=== PATIENT | male | born 1955 | race Caucasian/White ===

== ENCOUNTER 2023-07-19 10:37 | Outpatient (REF) | payer MEDICARE, SELFPAY | END 2023-07-19 10:38 | disposition home or self-care (01) | LOC: HO.HOSX 10:37 | PROVIDERS: Visit Provider Orthopaedic Surgery | DX: Z13.89 Encounter for screening for other disorder (principal) ==

== ENCOUNTER 2024-02-14 12:40 | Outpatient (AMB) | payer MEDICARE, SELFPAY ==
--- NOTE | 2024-02-14 12:41 | A.OFFVIS_ITS ---
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 The patient describes his left knee pain as sharp in nature. His pain has gotten worse over the last few years in spite of continued non operative treatments. The patient states that he has been seen by another provider in the past. He has had cortisone injections which gave him minimal relief. He also had a viscosupplementation injection given into his left knee which gave him good relief. He wishes to hold off on total knee replacement surgery for as long as possible. Has failed the last 3 months of conservative treatment including topical creams, a home exercise program and Tylenol. He is not able to tolerate anti-inflammatory medicines because he is on Eliquis. The patient also has progressively worsening low back pain which radiates down his right leg to his right foot. His back pain has gotten worse over the last year in spite of continued non operative treatments. He also reports intermittent weakness in his right leg. Allergies No Known Allergies Allergy (Verified 02/14/24 12:47) Medication List - Last Reconciled 02/14/24 by Ilan Wood MD apixaban (Eliquis) 5 mg PO BID aspirin (Adult Aspirin Regimen) 81 mg PO DAILY metoprolol tartrate 50 mg PO BID mexiletine 150 mg PO TID ranolazine ER 500 mg PO BID rosuvastatin 40 mg PO DAILY Physical Exam Const Other: Well-nourished well-developed very friendly male awake alert and oriented x3 in no acute distress Back/Spine/Pelvis Other: Low back examination shows right-sided paraspinal muscle tenderness, pain with range of motion, positive straight leg raise test on the right at 70 degrees, 4/5 strength with testing of his right hip flexors and knee extensors when compared to 5/5 strength on his left side Extrem Other: Bilateral lower extremity examination shows good capillary refill, no skin lesions noted, normal sensation light touch Left knee examination shows a mild effusion, palpable crepitus with range of motion, pain with range of motion, range of motion from -3 degrees to 115 degrees, no instability Results Reviewed Results Reviewed: X-rays of the patient's left knee taken previously show joint space narrowing, subchondral sclerosis consistent with osteoarthritis Assessment & Plan Assessment & Plan (1) Left knee pain: Code(s): M25.562 - Pain in left knee Category: Medical (2) Low back pain radiating to right leg: Code(s): M54.50 - Low back pain, unspecified; M79.604 - Pain in right leg Category: Medical (3) Osteoarthritis of left knee: Code(s): M17.12 - Unilateral primary osteoarthritis, left knee Category: Medical Plan Mr. Gaxiola presents with progressively worsening left knee pain due to osteoarthritis. He has not gotten good relief from cortisone injections in the past. He has failed the last 3 months of conservative treatment. Thus, I will see whether or not the patient's insurance company will cover a viscosupplementation injection. He has had viscosupplementation injections in the past which gave him good relief. The patient also has progressively worsening low back pain which radiates down his right leg and associated right leg weakness possibly due to lumbar stenosis or a disc herniation. Thus, I will send him for an MRI of his lumbar spine for further evaluation. I will see him back once the MRI is completed to discuss the findings. Feel free to call me at any time should questions regarding his orthopedic management arise. Thank you very much for asking me to see this very friendly gentleman. I spent 21 minutes in reviewing the patient's records and imaging studies, seeing the patient and documenting in the medical record. Orders: Orders MR lumbar spine wo con 02/14/24 M54.50 - Low back pain, unspecified, M79.604 - Pain in right leg Coding Level of Care Code New Pt Level 3 (63928) Diagnoses Left knee pain M25.562 Low back pain radiating to right leg M54.50; M79.604 Osteoarthritis of left knee M17.12
== END 2024-02-14 13:04 | disposition home or self-care (01) ==
PROVIDERS: Visit Provider Orthopaedic Surgery
DX: M25.562 Pain in left knee (principal); M54.50 Low back pain, unspecified; M79.604 Pain in right leg; M17.12 Unilateral primary osteoarthritis, left knee
CPT/HCPCS: 99203

== ENCOUNTER 2024-02-14 12:40 | Outpatient (REF) | payer MEDICARE, SELFPAY | END 2024-02-14 12:41 | disposition home or self-care (01) | LOC: HO.HOSX 12:40 | PROVIDERS: Visit Provider Orthopaedic Surgery | DX: M17.12 Unilateral primary osteoarthritis, left knee (principal) | CPT/HCPCS: 99202 ==

== ENCOUNTER 2024-03-13 12:54 | Outpatient (AMB) | payer MEDICARE, SELFPAY ==
--- NOTE | 2024-03-13 13:00 | A.OFFVIS_ITS ---
Vital Signs 03/13/24 13:03 Height 5 ft 8 in Weight 195 lb BMI 29.6 Intake Visit Reasons: Left Knee Durolane Injection & MRI Review Intake Note: Joselito is a 68 year old male who presents today to review results of a lumbar spine MRI. The patient states that his back pain is sharp in nature. His pain does radiate down his right leg. He also has progressively worsening left knee pain. He has had cortisone injections in the past which gave him minimal relief. Has not had a viscosupplementation injection. He has tried Tylenol which gives him minimal relief. He is not able to take anti- inflammatory medicines because he is on Eliquis. Allergies No Known Allergies Allergy (Verified 03/13/24 13:03) Physical Exam Vital Signs: BMI result Body Mass Index 29.6 Const Other: Well-nourished well-developed very friendly male awake alert and oriented x3 in no acute distress Extrem Other: Left knee examination shows a mild effusion, palpable crepitus with range of motion, pain with range of motion, no instability Office Procedures Joint Injection/Aspiration Joint Injection/Aspiration Primary Site: left knee Prep: site was prepped using aseptic technique Injected: 60 mg of (Durolane viscosupplementation) and 1% plain lidocaine Procedure: The patient tolerated the procedure well Coding 26301 - Large joint Procedure code (CPT) selection complete Results Reviewed Results Reviewed: X-rays of the patient's left knee taken previously show joint space narrowing, subchondral sclerosis, no acute bony abnormalities MRI of the patient's lumbar spine shows moderate to severe foraminal stenosis at level L5-S1 Assessment & Plan Assessment & Plan (1) Osteoarthritis of left knee: Code(s): M17.12 - Unilateral primary osteoarthritis, left knee Category: Medical Plan Mr. Gaxiola presents with left knee pain due to degenerative joint disease. I had a lengthy discussion with the patient regarding the treatment options. The risks and benefits of a left knee Durolane viscosupplementation injection were discussed at length with the patient. The patient wished to proceed. Prior to the injection I aspirated 5 cc of clear fluid from his left knee. He tolerated the injection well. The patient does have progressively worsening low back pain which radiates down his right leg most likely due to foraminal stenosis. Thus, I will refer the patient to the neurosurgery department here at [facility]. He will follow-up as instructed. He will contact me prior to his follow-up appointment in 3 months should any questions or concerns arise. Feel free to call me at any time should questions regarding his orthopedic management arise. I spent 21 minutes in reviewing the patient's records and imaging studies, seeing the patient and documenting in the medical record. Orders: Orders PT Evaluation and Treatment Today M54.50 - Low back pain, unspecified, M79.604 - Pain in right leg AMB Joint Injection/Aspiration Today M17.12 - Unilateral primary osteoarthritis, left knee Referrals Neuro Spine Referral M54.50 - Low back pain, unspecified, M79.604 - Pain in right leg Coding Level of Care Code Est Pt Level 3 (44884) Complex EM visit Add On G2211 Diagnoses Osteoarthritis of left knee M17.12 CPT Codes Coding - 15492 Large joint: 11926 - Large joint ([id number])
[2024-03-13 13:03] VITALS: BMI 29.6
== END 2024-03-13 13:34 | disposition home or self-care (01) ==
PROVIDERS: Visit Provider Orthopaedic Surgery
DX: M17.12 Unilateral primary osteoarthritis, left knee (principal)
CPT/HCPCS: 20610; 99213

== ENCOUNTER → 2024-03-13 12:54 | Outpatient (BNVA) | payer MEDICARE, SELFPAY | PROVIDERS: Visit Provider Orthopaedic Surgery | DX: M17.12 Unilateral primary osteoarthritis, left knee (principal) | CPT/HCPCS: 20610; 99212; J7318 ==

== ENCOUNTER 2024-03-22 10:37 | Outpatient (AMB) | payer MEDICARE, SELFPAY ==
--- NOTE | 2024-03-22 10:47 | HO.SPINEOV ---
Intake Visit Reasons: LBP Intake Note: Mr. Gaxiola is here today c/o Low back and knee pain. 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 He is a very nice 68-year-old gentleman presents to the office today for evaluation of a right L5 radiculopathy which travels down his leg into his calf and his ankle. He has had this on and off, probably been getting worse over the course of a few months. It has not really restricting his ability to move or do many things but it is there from time to time. He does exercises at home like stretching and things to try to loosen things up. He does not like taking medications so really has not taken any Tylenol or Motrin. No conservative treatments at this point but he did have an MRI showing foraminal narrowing at the L5 foramen. He came in to see us for an evaluation. Does not really report any neck pain or loss of function of the lower extremities from this problem. PMH: History of CAD, AFib on Eliquis but outside of that he tells me he is reasonably healthy with no issues with his lungs, liver, kidneys, intestines, bleeding disorders, cancer etc. Social hx: Quit smoking 2005 when he had his bypass other than that no alcohol or drugs Medications: Maxilla teen, rosuvastatin, Eliquis, ranolazine, metoprolol and a baby aspirin Allergies: None Physical exam: Strength and reflexes intact, gait is normal Imaging review: MRI done at [facility] and [place] shows mild degenerative disc disease in the lumbar spine with some mild disc bulging. The L5-S1 disc is slightly degenerative and this is crowding the L5 foramen. Impression: 68-year-old gentleman presents with what sounds like a right L5 radiculopathy probably secondary to the degeneration of his disc at L5-S1 with some foraminal crowding. In terms of his symptoms, they are really more of an annoyance and not really anything that is affecting his quality of life for his ability to function so I told him that this is something best treated with simple conservative management like PT, possibly a cortisone injection if things escalate. Surgery would be absolutely the last option and I do not think he is close to that at this point. He will come back and see us if things get worse. I did give him a referral to PT. right now he does not want to consider an injection. Thank you for allowing us to care for your patient. The total time spent with this visit with this patient was 45 minutes reviewing history, physical exam, lumbar imaging review, and implementation of treatment plan or further diagnostic testing Stephon Santizo MD,PhD [facility] Orders: Orders PT Evaluation and Treatment Today M51.36 - Other intervertebral disc degeneration, lumbar region Coding Level of Care Code New Pt Level 4 (88165) Diagnoses Lumbar degenerative disc disease M51.36
== END 2024-03-22 11:36 | disposition home or self-care (01) ==
PROVIDERS: Referring Provider Orthopaedic Surgery; Visit Provider Physician Assistant
DX: M51.36 Other intervertebral disc degeneration, lumbar region (principal)
CPT/HCPCS: 99204

== ENCOUNTER → 2024-03-22 10:37 | Outpatient (BNVA) | payer MEDICARE, SELFPAY | PROVIDERS: Visit Provider Physician Assistant | DX: M51.36 Other intervertebral disc degeneration, lumbar region (principal); Z79.01 Long term (current) use of anticoagulants; Z51.81 Encounter for therapeutic drug level monitoring | CPT/HCPCS: 99202 ==

== ENCOUNTER 2024-06-13 14:21 | Outpatient (AMB) | payer MEDICARE, SELFPAY ==
--- OUTSIDE RECORDS SUMMARY | 2024-06-13 14:23 | XMS_ITS ---
Author Name [facility] Organization Unknown History of Medication Use Medication Directions Dispensed Refills Start Date End Date Stat Eliquis 5 MG tablet TAKE 1 TABLET BY MOUTH TWICE A DAY 11/17/2023 active ketoconazole (NIZORAL) 2 % cream Apply to the area twice a day for at least 14 days. 11/02/2023 active sulfamethoxazole-tri methoprim (BACTRIM DS,SEPTRA DS) 800-160 MG per tablet Take 1 tablet by mouth 2 (two) times a day. 11/02/2023 active metoPROLOL TARTRATE (LOPRESSOR) 50 MG tablet Take 1 tablet (50 mg total) by mouth 2 (two) times a day. 06/10/2022 active calcium carbonate (TUMS) 500 MG chewable tablet Chew 1 tablet (500 mg total) every 4 (four) hours as needed for indigestion or heartburn. 06/14/2022 active rosuvastatin (CRESTOR) 20 MG tablet Take 1 tablet (20 mg total) by mouth daily. 06/10/2022 aborted Esomeprazole Magnesium (NEXIUM PO) Take by mouth. 11/23/2022 aborted gadobutrol (GADAVIST) injection 19 mL 19 mL, Intravenous, Once in imaging, contrast, Starting on Mon05/02/23 at 1532, For 1 dose, Radiology Appointment 05/05/2023 completed mexiletine (MEXITIL) 150 MG capsule Take 1 capsule (150 mg total) by mouth 3 (three) times a day. With food. 10/27/2022 active apixaban (ELIQUIS) 5 MG tablet Take 1 tablet (5 mg total) by mouth 2 (two) times a day. 06/10/2022 active raNOLazine (raNEXa) 500 MG 12 hr tablet Take 1 tablet (500 mg total) by mouth twice daily (every 12 hours). Swallow tablet whole; do not crush, break, or chew. 06/10/2022 active metoPROLOL TARTRATE (LOPRESSOR) 25 MG tablet Take 1 tablet (25 mg total) by mouth 2 (two) times a day. 08/26/2022 active nitroglycerin (NITROSTAT) 0.[address] 1 tablet (0.4 mg total) under the tongue every 5 (five) minutes as needed for chest pain. 06/10/2022 active esomeprazole (NexIUM) 10 MG packet Take 10 mg by mouth as needed. 06/10/2022 active doxycycline (VIBRAMYCIN) 100 MG capsule Take 1 capsule (100 mg total) by mouth 2 (two) times a day. 06/10/2022 aborted rosuvastatin (CRESTOR) 40 MG tablet Take 1 tablet (40 mg total) by mouth daily. 11/20/2022 active tamsulosin (FLOMAX) 0.4 MG capsule 05/08/2023 aborted diazepam (VALIUM) 5 MG tablet Take 1 tablet the night before your MRI and 1 tablet one hour before your MRI. Please coordinate a ride. 12/16/2022 aborted aspirin enteric coated (ECOTRIN LOW STRENGTH) 81 MG EC tablet Take 1 tablet (81 mg total) by mouth daily. 06/10/2022 active rosuvastatin (CRESTOR) 20 MG tablet TAKE 1 TABLET BY MOUTH EVERY DAY 08/03/2022 aborted esomeprazole (NexIUM) 40 MG capsule as needed. 05/12/2023 active Problems Problem Status Onset Date Problem Type Date of Resolution Source Onychomycosis due to dermatophyte active 2024-05-20 [facility]Act [facility] Mitral valve insufficiency active 2022-02-23 ProblemAct [facility] High cholesterol active EncounterDiagnosisAct [facility] Interatrial septal aneurysm with PFO active 2021-12-08 ProblemAct [facility] Abdominal pain active 2009-10-[address] PAF (paroxysmal atrial fibrillation) active 2022-02-23 ProblemAct [facility] Osteoarthritis active 2009-05-[address] GERD (gastroesophageal reflux disease) active 2020-12-07 ProblemAct [facility] Type 2 diabetes mellitus without complication active 2024-05-20 ProblemAct [facility] S/P CABG x 2 active 2016-09-22 ProblemAct [facility] External hemorrhoids active 2008-08-25 ProblemAct [facility] Anxiety state active 2009-10-16 ProblemAct [facility] T Disorder of carbohydrate metabolism active 2024-05-20 ProblemAct [facility] Impacted cerumen active 2009-07-16 ProblemAct [facility] Coronary artery disease involving coronary bypass graft of [place] heart without angina pectoris active 2022-02-23 ProblemAct [facility] Atypical atrial flutter active 2021-03-31 ProblemAct [facility] Verruca vulgaris active 2024-05-20 ProblemAct [facility] Arthritis of knee active 2024-05-20 ProblemAct [facility] S/P right coronary artery (RCA) stent placement active ProblemAct [facility] Benign neoplasm of colon active 2008-10-24 ProblemAct [facility] Benign neoplasm of skin active 2024-05-20 ProblemAct [facility] Abnormal glucose level active 2024-05-20 ProblemAct [facility] Femoral artery hematoma complicating cardiac catheterization active 2020-12-07 ProblemAct [facility] Ischemic cardiomyopathy active 2022-02-23 ProblemAct [facility] Pericardial cyst active 2023-11-08 ProblemAct [facility] Epidermoid cyst of skin active 2024-05-20 ProblemAct [facility] Hemorrhage of rectum and anus active 2008-08-25 ProblemAct [facility] Non compliance with medical treatment active 2019-04-22 ProblemAct [facility] Derangement of knee active 2009-07-16 ProblemAct [facility] Dizziness and giddiness active 2024-05-20 ProblemAct [facility] NSVT (nonsustained ventricular tachycardia) active 2022-12-22 ProblemAct [facility] Acute upper respiratory infection active 2024-05-20 ProblemAct [facility] Ingrown nail active 2008-04-22 ProblemAct [facility] Immunizations Vaccine Date Source Lot Number Status Covid-19 MRNA Vaccine - Pfiz er 12+ (Purple Cap) 08/30/2020 [facility] completed Influenza, Trivalent (FLUARI X, AFLURIA, FLULAVAL, FLUZONE) Preservative Free IM 05/29/2012 [facility] [id number] completed Zoster Vaccine Recombinant (Shingrix) 10/05/2022 [facility] [id number] completed Influenza, Trivalent (FLUARI X, AFLURIA, FLULAVAL, FLUZONE) Preservative Free IM 05/07/2013 [facility] [id number] completed Influenza, Quadrivalent (FLU ARIX, AFLURIA, FLULAVAL, FLUZONE) Preservative Free IM 05/20/2020 [facility] [id number] completed Influenza, Unspecified 06/13/2023 [facility] co mpleted Influenza, Trivalent (FLUARI X, AFLURIA, FLULAVAL, FLUZONE) Preservative Free IM 05/16/2011 [facility] [id number] completed Influenza High-Dose Quadriva lent,(FLUZONE HIGH-DOSE), Perservative Free IM 0.7 mL 65 years and older 06/01/2022 [facility] [id number] completed Zoster Vaccine Recombinant (Shingrix) 04/27/2022 [facility] [id number] completed Influenza, Quadrivalent (FLU ARIX, AFLURIA, FLULAVAL, FLUZONE) Preservative Free IM 04/22/2019 [facility] [id number] completed Covid-19 MRNA Vaccine - Pfiz er 12+ (Purple Cap) 08/05/2000 [facility] completed Influenza Virus Trivalent Sp lit Vaccine (MDV) IM 04/22/2008 [facility] completed Covid-19 MRNA Vaccine - Pfiz er 12+ (Purple Cap) 07/30/2020 [facility] completed Influenza, Quadrivalent (FLU ARIX, AFLURIA, FLULAVAL, FLUZONE) Preservative Free IM 04/13/2017 [facility] [id number] completed Tdap 02/12/2013 [facility] completed Covid-19 MRNA Vaccine - Pfiz er 12+ (Purple Cap) 07/09/2020 [facility] completed Influenza, Quadrivalent (FLU ARIX, AFLURIA, FLULAVAL, FLUZONE) Preservative Free IM 04/28/2016 [facility] [id number] completed Zoster,unspecified 10/05/2022 [facility] [id number] comple lee ann Influenza (AFLURIA/FLUZONE) Inactivated/Split Quadrivalent with Preservative IM 04/22/2008 [facility] completed H1N1 All Forms 06/04/2009 [facility] completed Influenza, Recombinant, Quad rivalent (FLUBLOK) Preservative Free IM 05/11/2018 [facility] [id number] completed Influenza (AFLURIA/FLUZONE) Inactivated/Split Quadrivalent with Preservative IM 04/10/2014 [facility] [id number] completed
[2024-06-13 14:31] VITALS: BMI 29.6
--- NOTE | 2024-06-13 14:31 | A.OFFVIS_ITS ---
Vital Signs 06/13/24 14:31 Height 5 ft 8 in Weight 195 lb BMI 29.6 Intake Visit Reasons: Left knee pain Intake Note: Joselito is a 68 year old male who presents with complaints of progressively worsening left knee pain. He describes his pain as sharp in nature. He has had cortisone injections in the past which gave him no relief. Has also had Durolane viscosupplementation injections which gave him good relief. He has tried Tylenol which gives him minimal relief. He is not able to take anti- inflammatory medicines because he is on Eliquis. He has failed the last 3 months of conservative treatment which has consisted of physical therapy exercises, Tylenol and topical creams. The patient states that his left knee pain is now interfering with his activities of daily living and his ability to sleep well through the night. He wishes to hold off on total knee replacement surgery for as long as possible. Allergies No Known Allergies Allergy (Verified 06/13/24 14:44) Medication List - Last Reconciled 06/14/24 by Ilan Wood MD apixaban (Eliquis) 5 mg PO BID aspirin (Adult Aspirin Regimen) 81 mg PO DAILY metoprolol tartrate 50 mg PO BID mexiletine 150 mg PO TID ranolazine ER 500 mg PO BID rosuvastatin 40 mg PO DAILY Physical Exam Vital Signs: BMI result Body Mass Index 29.6 Const Other: Well-nourished well-developed very friendly male awake alert and oriented x3 in no acute distress Extrem Other: Bilateral lower extremity examination shows good capillary refill, no skin lesions noted, normal sensation light touch Left knee examination shows a minimal effusion, palpable crepitus with range of motion, pain with range of motion, range of motion from -3 degrees to 115 degrees, no instability Results Reviewed Results Reviewed: X-rays of the patient's left knee taken previously show joint space narrowing, subchondral sclerosis, no acute bony abnormalities Assessment & Plan Assessment & Plan (1) Left knee pain: Code(s): M25.562 - Pain in left knee Category: Medical (2) Osteoarthritis of left knee: Code(s): M17.12 - Unilateral primary osteoarthritis, left knee Category: Medical Plan Mr. Gaxiola presents with left knee pain due to osteoarthritis. I had a lengthy discussion with the patient regarding the treatment options. He wishes to hold off on total knee replacement surgery for as long as possible. I agree with this plan. Has not gotten good relief from cortisone injections in the past. Thus, I will see whether or not his insurance company will cover another viscosupplementation injection. I will see him back once the injection is available. He will contact me prior to that time should any questions or concerns arise. I spent 22 minutes in reviewing the patient's records and imaging studies, seeing the patient and documenting in the medical record. Coding Level of Care Code Est Pt Level 3 (74501) Complex EM visit Add On G2211 Diagnoses Left knee pain M25.562 Osteoarthritis of left knee M17.12
== END 2024-06-13 14:59 | disposition home or self-care (01) ==
PROVIDERS: Visit Provider Orthopaedic Surgery
DX: M25.562 Pain in left knee (principal); M17.12 Unilateral primary osteoarthritis, left knee
CPT/HCPCS: 99213; G2211

== ENCOUNTER → 2024-06-13 14:21 | Outpatient (BNVA) | payer MEDICARE, SELFPAY | PROVIDERS: Visit Provider Orthopaedic Surgery | DX: M17.12 Unilateral primary osteoarthritis, left knee (principal); M25.562 Pain in left knee | CPT/HCPCS: 99212 ==

== ENCOUNTER 2024-09-17 14:50 | Outpatient (AMB) | payer MEDICARE, SELFPAY ==
--- NOTE | 2024-09-17 14:53 | MHC.OFFVIS ---
Intake Visit Reasons: Inj-Left knee Durolane Intake Note: Joselito is a 68 year old male who presents with complaints of left knee pain. He describes his pain as sharp in nature. He has tried Tylenol which gives him only mild relief. He is not able to take anti-inflammatory medicines because he is on Eliquis. He wishes to hold off on surgery for as long as possible. He has had cortisone injections which gave him minimal relief. Allergies No Known Allergies Allergy (Verified 09/17/24 14:55) Medication List - Last Reconciled 09/18/24 by Ilan Wood MD apixaban (Eliquis) 5 mg PO BID aspirin (Adult Aspirin Regimen) 81 mg PO DAILY metoprolol tartrate 50 mg PO BID mexiletine 150 mg PO TID ranolazine ER 500 mg PO BID rosuvastatin 40 mg PO DAILY Physical Exam Const Other: Well-nourished well-developed very friendly male awake alert and oriented x3 in no acute distress Extrem Other: Bilateral lower extremity examination shows good capillary refill, no skin lesions noted, normal sensation light touch Left knee examination shows a minimal effusion, palpable crepitus with range of motion, pain with range of motion, no instability Office Procedures AMB Joint Injection/Aspiration Joint Injection/Aspiration Primary Site: left knee Prep: site was prepped using aseptic technique Injected: 60 mg of (Durolane viscosupplementation) and 1% plain lidocaine Procedure: The patient tolerated the procedure well Coding 17326 - Large joint Procedure code (CPT) selection complete Results Reviewed Results Reviewed: X-rays of the patient's left knee taken previously show joint space narrowing, subchondral sclerosis, no acute bony abnormalities Assessment & Plan Assessment & Plan (1) Osteoarthritis of left knee: Code(s): M17.12 - Unilateral primary osteoarthritis, left knee Category: Medical Plan Mr. Gaxiola presents with progressively worsening left knee pain due to osteoarthritis. The risks and benefits of a left knee Durolane viscosupplementation injection were discussed at length with the patient. The patient wished to proceed. He tolerated the injection well. He will continue with his home exercise program. He will contact me prior to his follow-up appointment in 3 months should any questions or concerns arise. Feel free to call me at any time should questions regarding his orthopedic management arise. I spent 21 minutes in reviewing the patient's records and imaging studies, seeing the patient and documenting in the medical record. Orders: Orders AMB Joint Injection/Aspiration 09/17/24 M17.12 - Unilateral primary osteoarthritis, left knee Coding Level of Care Code Est Pt Level 3 (09689) Complex EM visit Add On G2211 Diagnoses Osteoarthritis of left knee M17.12 CPT Codes Coding - 88261 Large joint: 86290 - Large joint ([id number])
--- OUTSIDE RECORDS SUMMARY | 2024-09-17 17:39 | XMS_ITS | Encounter Summary ---
Author Organization [facility] Address [address] [place] [address] Care Team Providers Care Inspector Screen Printing Name Role Phone Aubrie Mchugh MD Primary Care Provider [phone] Dhruv Clayton MD Primary Care Provider [phone] Shelby Borja MD Unavailable Rocio Jon PA-C Unavailable [phone] Encounter Details Date Type Department Care Team (Late st Contact Info) Description 10/05/2015 Scanned Document [address] [facility] [place] [address] [place] [phone] Provider, Generic Social History Tobacco Use Types Packs/Day Years Used Date Smoking Tobacco: Never Assessed Sex and Gender Information Value Date Recorded Sex Assigned at Male 08/04/2022 8:45 AM EST Gender Identity Male 08/04/2022 8:45 AM EST Sexual Orientation Heterosexual (straight) 08/04 8:45 AM EST documented as of this encounter Plan of Treatment Upcoming Encounters Date Type Department Care Team (Late st Contact Info) Description 09/30/2024 8:40 AM EDT Office Visit [facility] Heart & Vascular [address] [phone] Shelby Borja MD [address] [place] [address] [place] [address] 10/11/2024 1:00 PM EDT Office Visit [facility] Electrophysiology- [place] [address] [place] [address] Rocio Jon PA-C [address] [place] [address] documented as of this encounter Procedures Procedure Name Priority Date/Time Associated Diagnosis Comments STRESS TEST 10/05/2015 documented in this encounter Results * STRESS TEST (10/05/2015) Anatomical Region Laterality Modality Other Narrative 09/26/2016 5:00 AM EDT Ordered by an unspecified provider. Generic Provider HX AMB PROCEDURES documented in this encounter Visit Diagnoses Not on filedocumented in this encounter Care Teams Inspector Screen Printing Relationship Specialty Start Date End Date Aubrie Mchugh MD [address] [place] [address] PCP - General 08/18/16 11/15/20 Dhruv Clayton MD [address] [place] [address] PCP - General Internal Medicine 11/16/20 Shelby Borja MD [address] [place] [address] Primary Power Tong Operator Cardiovascular Disease 01/19/22 Rocio Jon PA-C [address] [place] [address] Physician Multiple Drum Sander Helper Cardiac Electrophysiology 09/08/23 documented as of this encounter
--- OUTSIDE RECORDS SUMMARY | 2024-09-17 17:39 | XMS_ITS | Encounter Summary ---
Author Organization [facility] Address [address] [place] [address] Care Team Providers Care Truck Bracer Name Role Phone Aubrie Mchugh MD Primary Care Provider Dhruv Clayton MD Primary Care Provider Shelby Borja MD Unavailable Rocio Jon PA-C Unavailable [phone] Encounter Details Date Type Department Care Team (Late st Contact Info) Description 09/10/2009 Scanned Document [address] [facility] [address] [place] [phone] Provider, Generic Social History Tobacco Use [...] Description 09/30/2024 8:40 AM EDT Office Visit [facility] Heart & Vascular [address] [phone] Shelby Borja MD [address] [place] [address] [place] [address] 10/11/2024 1:00 PM EDT Office Visit [facility] Electrophysiology- [place] [address] [place] [address] Rocio Jon PA-C [address] [place] [address] documented as of this encounter Visit Diagnoses Not on filedocumented in this encounter Care Teams Truck Bracer Relationship Specialty Start Date End Date Aubrie Mchugh MD [address] [place] [address] PCP - General 08/18/16 11/15/20 Dhruv Clayton MD [address] [place] [address] PCP - General Internal Medicine 11/16/20 Shelby Borja MD 584 [facility] [address] [place] [address] Primary Industrial Green Systems Designer Cardiovascular Disease 01/19/22 Rocio Jon PA-C [address] [place] [address] Physician Poll Watcher Cardiac Electrophysiology 09/08/23 documented as of this encounter
--- OUTSIDE RECORDS SUMMARY | 2024-09-17 17:39 | XMS_ITS | Encounter Summary ---
Author Organization [facility] Address [address] [place] [address] Care Team Providers Care Shot Blaster Name Role Phone Aubrie Mchugh MD Primary Care Provider [phone] Dhruv Clayton MD Primary Care Provider Shelby Borja MD Unavailable Rocio Jon PA-C Unavailable [phone] Encounter Details Date Type Department Care Team (Late st Contact Info) Description 03/18/2015 Scanned Document [address] [facility] [address] [place] [phone] Provider, Generic Social History Tobacco Use [...] 09/30/2024 8:40 AM EDT Office Visit [facility] Heart & Vascular [address] [phone] Shleby Borja MD [address] [place] [address] [place] [address] 10/11/2024 1:00 PM EDT Office Visit [facility] Electrophysiology- [place] [address] [place] [address] Rocio Jon PA-C [address] [place] [address] documented as of this encounter Procedures Procedure Name Priority Date/Time Associated Diagnosis Comments ECG 12-LEAD 03/18/2015 documented in this encounter Results * ECG 12-LEAD (03/18/2015) Narrative 03/18/2015 Ordered by an unspecified provider. Generic Provider ECG ORDERABLES documented in this encounter Visit Diagnoses Not on filedocumented in this encounter Care Teams Shot Blaster Relationship Specialty Start Date End Date Aubrie Mchugh MD [address] [place] [address] PCP - General 08/18/16 11/15/20 Dhruv Clayton MD [address] [place] [address] PCP - General Internal Medicine 11/16/20 Shelby Borja MD 584 [facility] [address] [place] [address] Primary Demand Planning Manager Cardiovascular Disease 01/19/22 Rocio Jon PA-C [address] [place] [address] Physician Adult Nurse Practitioner Cardiac Electrophysiology 09/08/23 documented as of this encounter
--- OUTSIDE RECORDS SUMMARY | 2024-09-17 17:39 | XMS_ITS | Encounter Summary ---
Author Organization [facility] Address [address] [place] [address] Care Team Providers Care Insulation Estimator Name Role Phone Aubrie Mchugh MD Primary Care Provider Dhruv Clayton MD Primary Care Provider [phone] Shelby Borja MD Unavailable Rocio Jon PA-C Unavailable [phone] Encounter Details Date Type Department Care Team (Late st Contact Info) Description 09/18/2015 Scanned Document [address] [facility] [address] [place] [phone] Provider, Generic Social History Tobacco Use [...] Description 09/30/2024 8:40 AM EDT Office Visit [facility] Heart & Vascular [address] [phone] Shelby Borja MD [address] [place] [address] [place] [address] 10/11/2024 1:00 PM EDT Office Visit [facility] Electrophysiology- [place] [address] [place] [address] Rocio Jon PA-C [address] [place] [address] documented as of this encounter Procedures Procedure Name Priority Date/Time Associated Diagnosis Comments LAB RESULT 09/18/2015 documented in this encounter Results * LAB RESULT (09/18/2015) Narrative 09/18/2015 Ordered by an unspecified provider. Generic Provider HX AMB PROCEDURES documented in this encounter Visit Diagnoses Not on filedocumented in this encounter Care Teams Insulation Estimator Relationship Specialty Start Date End Date Aubrie Mchugh MD [address] [place] [address] PCP - General 08/18/16 11/15/20 Dhruv Clayton MD [address] [place] [address] PCP - General Internal Medicine 11/16/20 Shelby Borja MD 584 [facility] [address] [place] [address] Primary Audio Director Cardiovascular Disease 01/19/22 Rocio Jon PA-C [address] [place] [address] Physician X Ray Electronics Wiring Technician Cardiac Electrophysiology 09/08/23 documented as of this encounter
--- OUTSIDE RECORDS SUMMARY | 2024-09-17 17:39 | XMS_ITS | Encounter Summary ---
Author Organization [facility] Address [address] [place] [address] Care Team Providers Care Precision Machinist Name Role Phone Aubrie Mchugh MD Primary Care Provider Dhruv Clayton MD Primary Care Provider [phone] Shelby Borja MD Unavailable Rocio Jon PA-C Unavailable [phone] Encounter Details Date Type Department Care Team (Late st Contact Info) Description 06/06/2006 Scanned Document [address] [facility] [address] [place] [phone] Provider, Generic Social History Tobacco Use [...] Description 09/30/2024 8:40 AM EDT Office Visit [facility] Heart & Vascular [address] [phone] Shelby Borja MD [address] [place] [address] [place] [address] 10/11/2024 1:00 PM EDT Office Visit [facility] Electrophysiology- [place] [address] [place] [address] Rocio Jon PA-C [address] [place] [address] documented as of this encounter Procedures Procedure Name Priority Date/Time Associated Diagnosis Comments CARDIAC CATHETERIZATION 06/06/2006 documented in this encounter Results * CARDIAC CATHETERIZATION (06/06/2006) Anatomical Region Laterality Modality Other Narrative 09/26/2016 5:00 AM EDT Ordered by an unspecified provider. Generic Provider CV CARDIAC CATH IRIS CARMONA documented in this encounter Visit Diagnoses Not on filedocumented in this encounter Care Teams Precision Machinist Relationship Specialty Start Date End Date Aubrie Mchugh MD [address] [place] [address] PCP - General 08/18/16 11/15/20 Dhruv Clayton MD [address] [place] [address] PCP - General Internal Medicine 11/16/20 Shelby Borja MD [address] [place] [address] Primary Financial Quantitative Analyst Cardiovascular Disease 01/19/22 Rocio Jon PA-C [address] [place] [address] Physician Cullet Crusher And Washer Cardiac Electrophysiology 09/08/23 documented as of this encounter
--- OUTSIDE RECORDS SUMMARY | 2024-09-17 17:40 | XMS_ITS | Encounter Summary ---
Author Organization [facility] Address [address] [place] [address] Care Team Providers Care Clinical Review Nurse Name Role Phone Aubrie Mchugh MD Primary Care Provider [phone] Dhruv Clayton MD Primary Care Provider [phone] Shelby Borja MD Unavailable Rocio Jon PA-C Unavailable [phone] Encounter Details Date Type Department Care Team (Late st Contact Info) Description 09/21/2016 Scanned Document [address] [place] [phone] Provider, Generic Social History Tobacco Use Types Packs/Day Years Used Date Smoking Tobacco: Former Alcohol Use Standard Drinks/Week Comments Yes 0 (1 standard drink = 0.6 oz pur e alcohol) Sex and Gender Information Value Date Recorded Sex Assigned at Male 08/04/2022 8:45 AM EST Gender Identity Male 08/04/2022 8:45 AM EST Sexual Orientation Heterosexual (straight) 08/04 8:45 AM EST documented as of this encounter Plan of Treatment Upcoming Encounters Date Type Department Care Team (Late st Contact Info) Description 09/30/2024 8:40 AM EDT Office Visit [facility] Heart & Vascular [place] [address] [phone] Shelby Borja MD [address] [place] [phone] 10/11/2024 1:00 PM EDT Office Visit [facility] Electrophysiology- [place] [address] [place] [address] Rocio Jon PA-C [address] [place] [address] documented as of this encounter Procedures Procedure Name Priority Date/Time Associated Diagnosis Comments LAB RESULT 09/21/2016 documented in this encounter Results * LAB RESULT (09/21/2016) Narrative 09/21/2016 Ordered by an unspecified provider. Generic Provider HX AMB PROCEDURES documented in this encounter Visit Diagnoses Not on filedocumented in this encounter Care Teams Clinical Review Nurse Relationship Specialty Start Date End Date Aubrie Mchugh MD [address] [place] [address] PCP - General 08/18/16 11/15/20 Dhruv Clayton MD [address] [place] [address] PCP - General Internal Medicine 11/16/20 Shelby Borja MD [address] [place] [address] [address] [place] [address] Primary Computer Systems Administrator Cardiovascular Disease 01/19/22 Rocio Jon PA-C [address] [place], [place] [address] Physician Manager Of Project Management Cardiac Electrophysiology 09/08/23 documented as of this encounter
--- OUTSIDE RECORDS SUMMARY | 2024-09-17 17:40 | XMS_ITS | Encounter Summary ---
Author Organization [facility] Address [address] [place] [address] Care Team Providers Care Calender Operator Helper Name Role Phone Aubrie Mchugh MD Primary Care Provider [phone] Dhruv Clayton MD Primary Care Provider [phone] Shelby Borja MD Unavailable Rocio Jon PA-C Unavailable [phone] Encounter Details Date Type Department Care Team (Late st Contact Info) Description 10/13/2020 Scanned Document [facility] Heart & Vascular [address] [address] Thor Morales MD [address] [place] [address] Social History Tobacco Use Types Packs/Day Years Used Date Smoking Tobacco: Former Cigarettes Q uit: 10/2005 Smokeless Tobacco: Never Alcohol Use Standard Drinks/Week Comments Yes 0 (1 standard drink = 0.6 oz pur e alcohol) Sex and Gender Information Value Date Recorded Sex Assigned at Male 08/04/2022 8:45 AM EST Gender Identity Male 08/04/2022 8:45 AM EST Sexual Orientation Heterosexual (straight) 08/04 8:45 AM EST COVID-19 Exposure Response Date Recorded In the last month, have you been in contact with someone who was confirmed or suspected to have Coronavirus / COVID-19? No / Unsure 10/01/2020 10:44 AM EDT documented as of this encounter Plan of Treatment Upcoming Encounters Date Type Department Care Team (Late st Contact Info) Description 09/30/2024 8:40 AM EDT Office Visit [facility] Heart & Vascular [place] [address] [place] [phone] Shelby Borja MD [address] [facility] [address] 10/11/2024 1:00 PM EDT Office Visit [facility] Electrophysiology- [place] [address] [place] [phone] Rocio Jon PAPelonC [address] [address] documented as of this encounter Visit Diagnoses Not on filedocumented in this encounter Care Teams Calender Operator Helper Relationship Specialty Start Date End Date Aubrie Mchuhg MD [address] [place] [address] PCP - General 08/18/16 11/15/20 Dhruv Clayton MD [address] [place] [address] PCP - General Internal Medicine 11/16/20 Shelby Borja MD [address] [place] [address] Primary Graphics Manager Cardiovascular Disease 01/19/22 Rocio Jon PAPelonC [address] [place] [address] Physician Humidifier Attendant Cardiac Electrophysiology 09/08/23 documented as of this encounter
--- OUTSIDE RECORDS SUMMARY | 2024-09-17 17:40 | XMS_ITS | Encounter Summary ---
Author Organization [facility] Address [address] [place] [address] Care Team Providers Care Route Service Manager Name Role Phone Aubrie Mchugh MD Primary Care Provider [phone] Dhruv Clayton MD Primary Care Provider Shelby Borja MD Unavailable Rocio Jon PA-C Unavailable [phone] Encounter Details Date Type Department Care Team (Late st Contact Info) Description 11/10/2005 Scanned Document [address] [facility] [address] [place] [phone] Provider, Generic Social History Tobacco Use [...] Description 09/30/2024 8:40 AM EDT Office Visit [facility] Heart & Vascular [address] [phone] Shelby Borja MD [address] [place] [address] [place] [address] 10/11/2024 1:00 PM EDT Office Visit [facility] Electrophysiology- [place] [address] [place] [address] Rocio Jon PA-C [address] [place] [address] documented as of this encounter Procedures Procedure Name Priority Date/Time Associated Diagnosis Comments CARDIAC CATHETERIZATION 11/10/2005 CARDIAC CATHETERIZATION 11/10/2005 documented in this encounter Results * CARDIAC CATHETERIZATION (11/10/2005) Anatomical Region Laterality Modality Other Narrative 09/26/2016 5:00 AM EDT Ordered by an unspecified provider. Generic Provider CV CARDIAC CATH ORDE RABLES * CARDIAC CATHETERIZATION (11/10/2005) Anatomical Region Laterality Modality Other Narrative 09/26/2016 5:00 AM EDT Ordered by an unspecified provider. Generic Provider CV CARDIAC CATH ORDE RABLES documented in this encounter Visit Diagnoses Not on filedocumented in this encounter Care Teams Route Service Manager Relationship Specialty Start Date End Date Aubrie Mchugh MD [address] [place] [address] PCP - General 08/18/16 11/15/20 Dhruv Clayton MD [address] [place] [address] PCP - General Internal Medicine 11/16/20 Shelby Borja MD 584 [facility] 400 [place] [address] Primary Show Worker Cardiovascular Disease 01/19/22 Rocio Jon PA-C [address] [place] [address] Physician Acquisition Cost Estimator Cardiac Electrophysiology 09/08/23 documented as of this encounter
--- OUTSIDE RECORDS SUMMARY | 2024-09-17 17:40 | XMS_ITS | Encounter Summary ---
Author Organization [facility] Address [address] [place] [address] Care Team Providers Care Retail Stock Clerk Name Role Phone Dhruv Clayton MD Primary Care Provider Shelby Borja MD Unavailable Rocio Jon PA-C Unavailable [phone] Encounter Details Date Type Department Care Team (Late Contact Info) Description 01/08/2021 Scanned Document [facility] Heart & Vascular [place] [address] [place] [address] Provider, [place], [address] [place] [address] Social History Tobacco Use Types Packs/Day Years [...] have Coronavirus / COVID-19? No / Unsure 12/24/2020 2:29 PM EDT documented as of this encounter Plan of Treatment Upcoming Encounters Date Type Department Care Team (Late Contact Info) Description 09/30/2024 8:40 AM EDT Office Visit [facility] Heart & Vascular [facility] [address] [place] [phone] Shelby Borja MD [address] [place] [address] [place] [address] 10/11/2024 1:00 PM EDT Office Visit [facility] Electrophysiology- [place] [address] [place] [address] Rocio Jon, PA-C [address] [place] [address] documented as of this encounter Visit Diagnoses Not on filedocumented in this encounter Care Teams Retail Stock Clerk Relationship Specialty Start Date End Date Dhruv Clayton MD [address] [place] [address] PCP - General Internal Medicine 11/16/20 Shelby Borja MD [address] [place] [address] [address] [place] [address] Primary Forensic Psychologist Cardiovascular Disease 01/19/22 Rocio Jon, PA-C [address] [place] [address] Physician Quote Clerk Cardiac Electrophysiology 09/08/23 documented as of this encounter
--- OUTSIDE RECORDS SUMMARY | 2024-09-17 17:40 | XMS_ITS | Encounter Summary ---
Author Organization [facility] Address [address] [place] [address] Care Team Providers Care Talk Show Host Name Role Phone Dhruv Clayton MD Primary Care Provider Shelby Borja MD Unavailable Rocio Jon PA-C Unavailable [phone] Encounter Details Date Type Department Care Team (Late st Contact Info) Description 11/19/2020 Scanned Document [facility] Heart & Vascular [place] [address] [address] Thor Morales MD [address] [place] [address] Social History Tobacco Use Types Packs/Day Years [...] or suspected to have Coronavirus / COVID-19? Unable to assess 11/20/2020 3:00 PM EDT documented as of this encounter Plan of Treatment Upcoming Encounters Date Type Department Care Team (Late st Contact Info) Description 09/30/2024 8:40 AM EDT Office Visit [facility] Heart & Vascular [place] [address] [place] [address] Shelby Borja MD [address] [place] [address] 10/11/2024 1:00 PM EDT Office Visit [facility] Electrophysiology- [place] [address] [place] [address] Rocio Jon, PA-C [address] [place] [phone] documented as of this encounter Visit Diagnoses Not on filedocumented in this encounter Care Teams Talk Show Host Relationship Specialty Start Date End Date Dhruv [place] MD [address] [place] [address] PCP - General Internal Medicine 11/16/20 Shelby Borja MD [address] [place] [address] [address] [place] [address] Primary Horse Stud Worker Cardiovascular Disease 01/19/22 Rocio Jon PA-C [address] [place] [address] Physician Countersinker Cardiac Electrophysiology 09/08/23 documented as of this encounter
--- OUTSIDE RECORDS SUMMARY | 2024-09-17 17:40 | XMS_ITS | Encounter Summary ---
Author Organization [facility] Address [address] [place] [address] Care Team Providers Care Credit Authorizer Name Role Phone Aubrie Mchugh MD Primary Care Provider [phone] Dhruv Clayton MD Primary Care Provider [phone] Shelby Borja MD Unavailable Rocio Jon PA-C Unavailable [phone] Encounter Details Date Type Department Care Team (Late st Contact Info) Description 08/11/2020 Scanned Document [facility] [address] [address] Stephon Montiel MD [address] [phone] Social History Tobacco Use Types Packs/Day Years Used Date Smoking Tobacco: Former Smokeless Tobacco: Never Alcohol Use Standard Drinks/Week [...] have Coronavirus / COVID-19? No / Unsure 07/14/2020 3:54 PM EST documented as of this encounter Plan of Treatment Upcoming Encounters Date Type Department Care Team (Late st Contact Info) Description 09/30/2024 8:40 AM EDT Office Visit [facility] Heart & Vascular [place] [address] [place] [address] Shelby Borja MD 37 [facility] [place] [address] 10/11/2024 1:00 PM EDT Office Visit [facility] Electrophysiology- [place] [address] [place] [address] Rocio Jon, PA-C [address] [address] documented as of this encounter Visit Diagnoses Not on filedocumented in this encounter Care Teams Credit Authorizer Relationship Specialty Start Date End Date Aubrie Mchugh MD [address] [place] [address] PCP - General 08/18/16 11/15/20 Dhruv [place] MD [address] [place] [address] PCP - General Internal Medicine 11/16/20 Shelby Borja MD [address] [place], [place] [phone] Primary General Hardware Salesperson Cardiovascular Disease 01/19/22 Rocio Jon PA-C [address] [place] [address] Physician Jewellery Designer Cardiac Electrophysiology 09/08/23 documented as of this encounter
--- OUTSIDE RECORDS SUMMARY | 2024-09-17 17:40 | XMS_ITS | Encounter Summary ---
Author Organization [facility] Address [address] [place] [address] Care Team Providers Care Option Trader Name Role Phone Aubrie Mchugh MD Primary Care Provider [phone] Dhruv Clayton MD Primary Care Provider Shelby Borja MD Unavailable Rocio Jon PA-C Unavailable [phone] Encounter Details Date Type Department Care Team (Late st Contact Info) Description 06/19/2020 Scanned Document [facility] Heart & Vascular [place] [address] [place] [address] Provider, External, [address] [place] [address] Social History Tobacco Use Types Packs/Day Years [...] have Coronavirus / COVID-19? No / Unsure 06/15/2020 11:29 AM EST documented as of this encounter Plan of Treatment Upcoming Encounters Date Type Department Care Team (Late st Contact Info) Description 09/30/2024 8:40 AM EDT Office Visit [facility] Heart & Vascular [place] [address] [place] [phone] Shelby Borja MD [address] [facility] [place] [address] 10/11/2024 1:00 PM EDT Office Visit [facility] Electrophysiology- [place] [address] [place] [address] Rocio Jon, PA-C [address] [address] documented as of this encounter Visit Diagnoses Not on filedocumented in this encounter Care Teams Option Trader Relationship Specialty Start Date End Date Aubrie Mchugh MD [address] [place] [address] PCP - General 08/18/16 11/15/20 Dhruv Clayton MD [address] [place] [address] PCP - General Internal Medicine 11/16/20 Shelby Borja MD [address] [place], [place] [phone] Primary Wire Brush Operator Cardiovascular Disease 01/19/22 Rocio Jon PA-C [address] [place] [address] Physician Application Integration Specialist Cardiac Electrophysiology 09/08/23 documented as of this encounter
--- OUTSIDE RECORDS SUMMARY | 2024-09-17 17:40 | XMS_ITS | Encounter Summary ---
Author Organization [facility] Address [address] [place] [address] Care Team Providers Care Emergency Medicine Specialist Name Role Phone Dhruv Clayton MD Primary Care Provider Shelby Borja MD Unavailable Rocio Jon PA-C Unavailable [phone] Encounter Details Date Type Department Care Team ([facility] Contact Info) Description 12/23/2020 Scanned Document [facility] Heart & Vascular [place] [address] [address] Thor Morales MD [address] [place] [address] Social History Tobacco Use Types Packs/Day Years [...] Upcoming Encounters Date Type Department Care Team ([facility] Contact Info) Description 09/30/2024 8:40 AM EDT Office Visit [facility] Heart & Vascular [place] [address] [place] [phone] Shelby Borja MD [address] [place] [address] [place] [address] 10/11/2024 1:00 PM EDT Office Visit [facility] Electrophysiology- [place] [address] [place] [address] Rocio Jon PAPelonC [address] [place] [phone] documented as of this encounter Visit Diagnoses Not on filedocumented in this encounter Care Teams Emergency Medicine Specialist Relationship Specialty Start Date End Date Dhruv Clayton MD [address] [place] [address] PCP - General Internal Medicine 11/16/20 Shelby Borja MD [address] [place] [address] [address] [place] [phone] Primary Petroleum Terminal Plant Operator Cardiovascular Disease 01/19/22 Rocio Jon PA-C [address] [place] [address] Physician Solar Maintenance Technician Cardiac Electrophysiology 09/08/23 documented as of this encounter
--- OUTSIDE RECORDS SUMMARY | 2024-09-17 17:40 | XMS_ITS | Encounter Summary ---
Author Organization [facility] Address [address] [place] [address] Care Team Providers Care Camera Control Operator Name Role Phone Dhruv Clayton MD Primary Care Provider Shelby Borja MD Unavailable Rocio Jon PA-C Unavailable [phone] Reason for Visit * Reason Comments Eye Pain Eye Problem Itchy Eye Encounter Details Date Type Department Care Team (Late st Contact Info) Description 08/22/2024 7:55 AM EST - 08/22/2024 9:47 AM EST Emergency [facility] [address] [place] [phone] Katie Gay Stockton, DO [address] [place] [address] Acute viral conjunctivitis of left eye (Primary Dx); Left temporal headache Discharge Disposition: Home or Self Care Social History Tobacco Use Types Packs/Day Years Used Date Smoking Tobacco: Former Cigarettes Q uit: 10/2005 Smokeless Tobacco: Never Alcohol Use Standard Drinks/Week Comments Not Currently 0 (1 standard drink = 0.6 oz pur e alcohol) occasional AUDIT-C Answer Date Recorded Q1: How often do you have a drink containing alc ohol? 2-3 times a week 11/16/2022 Q2: How many drinks containi ng alcohol do you have on a typical day when you are drinking? 1 or 2 11/16/2022 Q3: How often do you have si x or more drinks on one occasion? Never 11/16/2022 Sex and Gender Information Value Date Recorded Sex Assigned at Male 08/04/2022 8:45 AM EST Gender Identity Male 08/04/2022 8:45 AM EST Sexual Orientation Heterosexual (straight) 08/04 8:45 AM EST documented as of this encounter Last Filed Vital Signs Vital Sign Reading Time Taken Comments Blood Pressure 128/71 08/22/2024 8:08 AM EST Pulse 75 08/22/2024 8:08 AM EST Temperature 36.4 ??C (97.6 ??F) 08/22/2024 8:08 AM ES T Respiratory Rate 17 08/22/2024 8:08 AM EST Oxygen Saturation 99% 08/22/2024 8:08 AM EST Inhaled Oxygen Concentration - - Weight 90.7 kg (199 lb 15.3 oz) 08/22/2024 8:08 AM EST Height - - Body Mass Index 29.51 05/21/2024 12:31 PM EST documented in this encounter Discharge Instructions * Discharge Instructions* Gay Stockton DO - 08/22/2024 9:42 AM EST Take Tylenol 650 mg every 6 hours as needed for headache. It is important that you stay well-hydrated and drink plenty of fluids. Continue to apply cool compresses to your eye. Sure to wash your hands frequently. You may get ufho-emi-[id number] antihistamine eyedrops to help with the itchiness. Please follow-up with your eye doctor if not improved. Return to the ER if you develop new or worsening symptoms. * Attachments The following attachments cannot be sent through Care Everywhere. * Viral Conjunctivitis Adult (Telugu) documented in this encounter Medications at Time of Discharge Medication Sig Dispensed Refills Start Date End Date aspirin enteric coated (ECOTRIN LOW STRENGTH) 81 MG EC tablet Take 1 tablet (81 mg total) by mouth daily. calcium carbonate (TUMS) 500 MG chewable tablet Chew 1 tablet (500 mg total) every 4 (four) hours as needed for indigestion or heartburn. Eliquis 5 MG tabletIndications:Aty pical atrial flutter (HCC) TAKE 1 TABLET BY MOUTH TWICE A DAY 180 tablet 3 11/15/2023 esomeprazole (NexIUM) 40 MG capsule as needed. metoPROLOL TARTRATE (LOPRESSOR) 50 MG tabletIndications:PAF (paroxysmal atrial fibrillation) (HCC) Take 1 tablet (50 mg total) by mouth 2 (two) times a day. 180 tablet 3 09/26/2023 mexiletine (MEXITIL) 150 MG capsuleIndications:PV C's (premature ventricular contractions) Take 1 capsule (150 mg total) by mouth 3 (three) times a day with meals. 270 capsule 3 01/01/2024 12/26/2024 nitroglycerin (NITROSTAT) 0.4 MG SL tabletIndications:S/P CABG x [address] 1 tablet (0.4 mg total) under the tongue every 5 (five) minutes as needed for chest pain. 25 tablet 1 06/08/2022 raNOLazine (raNEXa) 500 MG 12 hr tabletIndications:Ang landy pectoris Take 1 tablet (500 mg total) by mouth twice daily (every 12 hours). Swallow tablet whole; do not crush, break, or chew. 60 tablet 3 11/18/2020 rosuvastatin (CRESTOR) 40 MG tabletIndications:Cor onary artery disease involving coronary bypass graft of galena heart without angina pectoris TAKE 1 TABLET BY MOUTH EVERY DAY 90 tablet 3 09/26/2023 documented as of this encounter ED Notes * Gay Wilson Mahin, DO - 08/22/2024 9:28 AM EST History Chief Complaint Patient presents with Eye Pain Eye Problem Itchy Eye HPI: I reviewed any nurses notes, vital signs, home medication list, other history or pertinent diagnostic tests available History provided by: The patient Associated symptoms and Additional history: This is a 68-year-old male who presents to the emergency department with a left temporal headache that he describes as a pressure like sensation for the past 2 months and developed itchy watery left eye yesterday. Cool compresses help with his symptoms. He denies any visual change. No ocular pain. No foreign body sensation. He has noted he has been congested recently, but denies rhinorrhea, sore throat, cough, fevers, or chills. He does not wear contact lenses. He has not followed up with ophthalmology. Additional HPI Past Medical History: Diagnosis Date Atrial fibrillation (HCC) Atrial flutter (HCC) Coronary artery disease S/P CABGx2 in 2006: stable class 1 angina Coronary artery disease S/P PCK of RCA 06/2006. No ischemia on ETT-Myoview with ATCP Hyperlipidemia Mitral valve disease Myocardial infarction (HCC) Nocturia Past Surgical History: Procedure Laterality Date ABLATION A-FLUTTER Bilateral 11/21/2022 Procedure: Atrial flutter ablation; Surgeon: Abdirahman Graham MD; Location: [facility]; Service: Cardiovascular; Laterality: Bilateral; CARDIAC CATHETERIZATION 12/2020 JEREZ graft to the diagonal LAD was patent. There was a 60% RCA stenosis. The proximal LAD had a 40 to 50% stenosis. The mid LAD had a severe stenosis. CC CORONARY ANGIO W/CABG+LT/RT CATH N/A 12/07/2020 Procedure: CORONARY ANGIO W/CABG+LT/RT CATH; Surgeon: Mark Sahu MD; Location: [facility]; Service: Cardiovascular; Laterality: N/A; CC LEFT VENTRICULOGRAPHY N/A 12/07/2020 Procedure: LEFT VENTRICULOGRAPHY; Surgeon: Mark Sahu MD; [facility]: [facility]; Service: Cardiovascular; Laterality: N/A; CORONARY ANGIOPLASTY WITH STENT PLACEMENT 11/10/2005 RCA CORONARY ARTERY BYPASS GRAFT 06/06/2006 JEREZ to LAD/D1 HERNIA REPAIR UVULECTOMY No family history on file. Social History Tobacco Use Smoking status: Former Current packs/day: 0.00 Types: Cigarettes Quit date: 10/2005 Years since quittin.8 Smokeless tobacco: Never Vaping Use Vaping status: Never Used Substance Use Topics Alcohol use: Not Currently Comment: occasional Drug use: No Review of Systems Physical Exam BP 128/71 (BP Location: Right arm, Patient Position: Lying) Pulse 75 Temp 97.6 ??F (36.4 ??C) (Oral) Resp 17 Wt 90.7 kg (199 lb 15.3 oz) SpO2 99% BMI 29.51 kg/m?? Physical Exam Vitals and nursing note reviewed. Constitutional: General: He is not in acute distress. Appearance: Normal appearance. He is well-developed. He is not diaphoretic. HENT: Head: Normocephalic. Nose: Congestion present. Mouth/Throat: Mouth: Mucous membranes are moist. Eyes: General: Lids are normal. Left eye: Discharge (Clear drainage) present. Extraocular Movements: Extraocular movements intact. Conjunctiva/sclera: Right eye: Right conjunctiva is not injected. Left eye: Left conjunctiva is injected (Mildly). No exudate. Pupils: Pupils are equal, round, and reactive to light. IOP (OS): 9, 10, 10 Cardiovascular: Rate and Rhythm: Normal rate. Rhythm irregularly irregular. Heart sounds: Normal heart sounds. Pulmonary: Effort: Pulmonary effort is normal. No respiratory distress. Musculoskeletal: General: No tenderness. Normal range of motion. Cervical back: Normal range of motion. Right lower leg: No edema. Left lower leg: No edema. Skin: General: Skin is warm and dry. Capillary Refill: Capillary refill takes less than 2 seconds. Findings: No erythema or rash. Neurological: General: No focal deficit present. Mental Status: He is alert and oriented to person, place, and time. Cranial Nerves: No cranial nerve deficit. Psychiatric: Mood and Affect: Mood normal. Behavior: Behavior normal. ED Course Final diagnoses: Acute viral conjunctivitis of left eye Left temporal headache Results for orders placed or performed during the hospital encounter of 08/22/24 Erythrocyte Sediment Rate (ESR) Collection Time: 08/22/24 8:55 AM Result Value Ref Range Erythrocyte Sediment Rate (ESR) 4 <20 MM/HR MDM: Number and Complexity of Problems Addressed MDM Detail: This is a 68-year-old male who presents the emergency department with a left temporal headache that is been ongoing for the past 2 months and started having left eye irritation, itchiness, with watery discharge yesterday. Corrected visual acuity test OS 20/40, OD 20/30. Sed rate 4. Differential diagnosis includes but is not excluded to allergic reaction, angioedema, orbital cellulitis, periorbital cellulitis, allergic/viral/bacterial/chemical conjunctivitis, iritis, episcleritis, UV keratitis, ocular foreign body, corneal abrasion, blepharitis, dacryocystitis, dacryoadenitis,acute angle closure glaucoma, temporal arteritis. I have discussed the findings of today's workup with the patient and addressed the patient's questions and concerns. Important warning signs as well as new or worsening symptoms which would necessitate immediate return to the ED were discussed. The plan is to discharge from the ED at this time, andthe patient is in stable condition. The patient acknowledged understanding is agreeable with this plan. Amount and Complexity of Data Independent Interpretation of Diagnostic study by ED clinician: Laboratory Test Risk of Complications and/or Morbidity or Mortality of Patient Management Critical Care No orders to display Gay Stockton DO 08/22/24 0944 documented in this encounter Plan of Treatment Upcoming Encounters Date Type Department Care Team (Late st Contact Info) Description 09/30/2024 8:40 AM EDT Office Visit [facility] Heart & Vascular [place] [address] [phone] Shelby Borja MD [address] [place] [address] Dr Julien [place], [place] [phone] 10/11/2024 1:00 PM EDT Office Visit [facility] [address] [place] [phone] Rocio Jon PA-C [address] [place], [place] [phone] documented as of this encounter Procedures Procedure Name Priority Date/Time Associated Diagnosis Comments ERYTHROCYTE SEDIMENTATION RATE (ESR) STAT 08/22/2024 8:55 AM EST documented in this encounter Results * Erythrocyte Sediment Rate (ESR) (08/22/2024 8:55 AM EST) Erythrocyte Sediment Rate (ESR) 4 <20 MM/HR 08/22/2024 9:36 AM EST [facility] Blood Blood specimen / Unknown 08/22/2024 8:55 AM EST 08/22/2024 8:58 AM EST Gay Stockton DO LAB BLOOD ORDERABLE S [address] documented in this encounter Visit Diagnoses Diagnosis Acute viral conjunctivitis of left eye- Primary Left temporal headache Coronary artery disease involving coronary bypass graft of galena heart without angina pectoris- Primary PAF (paroxysmal atrial fibrillation) ([facility]) Atrial fibrillation Ischemic cardiomyopathy Other specified forms of chronic ischemic heart disease Mitral valve insufficiency, unspecified etiology NSVT (nonsustained ventricular tachycardia) ([facility]) S/P CABG x 2 2006 Postsurgical aortocoronary bypass status High cholesterol Pure hypercholesterolemia Pericardial cyst Other specified congenital anomaly of heart Interatrial septal aneurysm with PFO documented in this encounter Administered Medications Inactive Administered Medications - up to 1 most recent administrations Medication Order MAR Action Action Date Dose Rate Site acetaminophen (TYLENOL) tablet 650 mg 650 mg, Oral, Once, On Chari 08/22/24 at 0938, For 1 dose Given 08/22/2024 9:42 AM EST 650 mg proparacaine (ALCAINE) 0.5 % ophthalmic solution 1 drop 1 drop, Left Eye, Once, On Chari 08/22/24 at 0847, For 1 dose, Do not use if discolored. Given 08/22/2024 9:05 AM EST 1 drop documented in this encounter Active and Recently Administered Medications Times are shown in EST. Scheduled Medication Order 08/20/2024 08/21/2024 08/22/2024 acetaminophen (TYLENOL) tablet 650 mg (COMPLETED) 650 mg, Oral, Once, On Chari 08/22/24 at 0938, For 1 dose 0942 (Given - Provid er: Alejandrina Singh RN) proparacaine (ALCAINE) 0.5 % ophthalmic solution 1 drop (COMPLETED) 1 drop, Left Eye, Once, On Chari 08/22/24 at 0847, For 1 dose, Do not use if discolored. 0905 (Given - Provid er: Alejandirna Singh, RN - Comment: Given by Provider) documented in this encounter Care Teams Camera Control Operator Relationship Specialty Start Date End Date Dhruv Clayton MD [address] [place] [address] PCP - General Internal Medicine 11/16/20 Shelby Borja MD [address] [facility] [address] [place] [address] Primary Therapeutic Sales Specialist Cardiovascular Disease 01/19/22 Rocio Jon PA-C [address] [place] [address] Physician Inside Technical Sales Representative Cardiac Electrophysiology 09/08/23 documented as of this encounter
--- OUTSIDE RECORDS SUMMARY | 2024-09-17 17:40 | XMS_ITS | Encounter Summary ---
Author Organization [facility] Address [address] [place] [address] Care Team Providers Care Network/Telecom Engineer Name Role Phone Aubrie Mchugh MD Primary Care Provider [phone] Dhruv Clayton MD Primary Care Provider [phone] Shelby Borja MD Unavailable Rocio Jon PA-C Unavailable [phone] Encounter Details Date Type Department Care Team (Late st Contact Info) Description 09/28/2017 Scanned Document [address] [place] [phone] Provider, Generic Social History Tobacco Use [...] 8:40 AM EDT Office Visit [facility] Heart & Vascular [place] [address] [phone] Shelby Borja MD [address] [place], [place] [phone] 10/11/2024 1:00 PM EDT Office Visit [facility] Electrophysiology- [place] [address] [place] [phone] Rocio Jon PA-C [address] [place], [place] [address] documented as of this encounter Procedures Procedure Name Priority Date/Time Associated Diagnosis Comments STRESS TEST 09/28/2017 documented in this encounter Results * STRESS TEST (09/28/2017) Anatomical Region Laterality Modality Other Narrative 09/28/2017 Ordered by an unspecified provider. Generic Provider HX AMB PROCEDURES documented in this encounter Visit Diagnoses Not on filedocumented in this encounter Care Teams Network/Telecom Engineer Relationship Specialty Start Date End Date Aubrie Mchugh MD [address] [place] [address] PCP - General 08/18/16 11/15/20 Dhruv Clayton MD [address] [place] [address] PCP - General Internal Medicine 11/16/20 Shelby Borja MD 5[address] [facility] [address] [place] [address] Primary Accounts Receivable Analyst Cardiovascular Disease 01/19/22 Rocio Jon PA-C [address] [place] [address] Physician Chemistry Specialist Cardiac Electrophysiology 09/08/23 documented as of this encounter
--- OUTSIDE RECORDS SUMMARY | 2024-09-17 17:40 | XMS_ITS | Encounter Summary ---
Author Organization [facility] Address [address] [place] [address] Care Team Providers Care Wares Sorter Name Role Phone Dhruv Clayton MD Primary Care Provider Shelby Borja MD Unavailable Rocio Jon PA-C Unavailable [phone] Encounter Details Date Type Department Care Team ([facility] Contact Info) Description 11/04/2022 Scanned Document [address] [place] [phone] Provider, Omer, [address] [place] [address] Social History Tobacco Use Types Packs/Day Years Used Date Smoking Tobacco: Former Cigarettes Q uit: 10/2005 Smokeless Tobacco: Never Alcohol Use Standard Drinks/Week Comments Yes 7 (1 standard drink = 0.6 oz pur e alcohol) Sex and Gender Information Value Date Recorded Sex Assigned at Male 08/04/2022 8:45 AM EST Gender Identity Male 08/04/2022 8:45 AM EST Sexual Orientation Heterosexual (straight) 08/04 8:45 AM EST COVID-19 Exposure Response Date Recorded In the last 10 days, have yo u been in contact with someone who was confirmed or suspected to have Coronavirus/COVID-19? No / Unsure 11/04/2022 12:50 PM EDT documented as of this encounter Plan of Treatment Upcoming Encounters Date Type Department Care Team ([facility] Contact Info) Description 09/30/2024 8:40 AM EDT Office Visit [facility] Heart & Vascular [place] [address] [place] [phone] Shelby Borja MD [address] [place] [address] [place] [address] 10/11/2024 1:00 PM EDT Office Visit [facility] Electrophysiology- [place] [address] [place] [address] Rocio Jon PAPelonC [address] [place] [phone] documented as of this encounter Visit Diagnoses Not on filedocumented in this encounter Care Teams Wares Sorter Relationship Specialty Start Date End Date Dhruv Clayton MD [address] [place] [address] PCP - General Internal Medicine 11/16/20 Shelby Borja MD [address] [place] [address] [address] [place] [phone] Primary Manager Multimedia Cardiovascular Disease 01/19/22 Rocio Jon PA-C [address] [place] [address] Physician Potato Peeler Cardiac Electrophysiology 09/08/23 documented as of this encounter
--- OUTSIDE RECORDS SUMMARY | 2024-09-17 17:40 | XMS_ITS | Encounter Summary ---
Author Organization [facility] Address [address] [place] [address] Care Team Providers Care Linux Vmware Administrator Name Role Phone Dhruv Clayton MD Primary Care Provider Shelby Borja MD Unavailable Rocio Jon PA-C Unavailable [phone] Encounter Details Date Type Department Care Team ([facility] Contact Info) Description 11/04/2022 Scanned Document [address] [place] [phone] Provider, Omer, [address] [place] [address] Social History Tobacco Use Types Packs/Day Years [...] Upcoming Encounters Date Type Department Care Team ([facility] Contact Info) Description 09/30/2024 8:40 AM EDT Office Visit [facility] Heart & Vascular [place] [address] [place] [phone] Shelby Borja MD [address] [place] [address] [place] [address] 10/11/2024 1:00 PM EDT Office Visit [facility] Electrophysiology- [place] [address] [place] [address] Rocio Jon PAPelonC [address] [place] [phone] documented as of this encounter Visit Diagnoses Not on filedocumented in this encounter Care Teams Linux Vmware Administrator Relationship Specialty Start Date End Date Dhruv Clayton MD [address] [place] [address] PCP - General Internal Medicine 11/16/20 Shelby Borja MD [address] [place] [address] [address] [place] [phone] Primary Crop And Soil Technician Cardiovascular Disease 01/19/22 Rocio Jon PA-C [address] [place] [address] Physician Steel Post Installer Cardiac Electrophysiology 09/08/23 documented as of this encounter
--- OUTSIDE RECORDS SUMMARY | 2024-09-17 17:40 | XMS_ITS | Encounter Summary ---
Author Organization [facility] Address [address] [place] [address] Care Team Providers Care Trim Attacher Name Role Phone Aubrie Mchugh MD Primary Care Provider [phone] Dhruv Clayton MD Primary Care Provider [phone] Shelby Borja MD Unavailable Rocio Jon PA-C Unavailable [phone] Encounter Details Date Type Department Care Team (Late st Contact Info) Description 11/24/2015 Scanned Document [address] [place] [phone] Provider, Generic Social History Tobacco Use [...] Description 09/30/2024 8:40 AM EDT Office Visit [facility] [address] [phone] Shelby Borja MD [address] [place] [address] [place] [address] 10/11/2024 1:00 PM EDT Office Visit [facility] Electrophysiology- [place] [address] [place] [address] Rocio Jon PA-C [address] [place] [address] documented as of this encounter Visit Diagnoses Not on filedocumented in this encounter Care Teams Trim Attacher Relationship Specialty Start Date End Date Aubrie Mchugh MD [address] [place] [address] PCP - General 08/18/16 11/15/20 Dhruv Clayton MD [address] [place] [address] PCP - General Internal Medicine 11/16/20 Shelby Borja MD 584 [facility] [address] [place] [address] Primary Hardboard Factory Worker Cardiovascular Disease 01/19/22 Rocio Jon PA-C [address] [place] [address] Physician Quality Rn Cardiac Electrophysiology 09/08/23 documented as of this encounter
--- OUTSIDE RECORDS SUMMARY | 2024-09-17 17:40 | XMS_ITS | Encounter Summary ---
Author Organization [facility] Address [address] [place] [address] Care Team Providers Care Vegetable Tier Name Role Phone Dhruv Clayton MD Primary Care Provider [phone] Shelby Borja MD Unavailable Rocio Jon PA-C Unavailable [phone] Encounter Details Date Type Department Care Team (Latest Contact Info) Description 08/22/2024 Travel Social History Tobacco Use Types Packs/Day Years [...] AM EDT Office Visit [facility] Vascular [place] [address] [phone] Shelby Borja MD [address] [place] [address] 10/11/2024 1:00 PM EDT Office Visit [facility] Electrophysiology- [place] [address] [place] [address] Rocio Jon PAPelonC [address] [place] [address] documented as of this encounter Visit Diagnoses Not on filedocumented in this encounter Care Teams Vegetable Tier Relationship Specialty Start Date End Date Dhruv Clayton MD [address] [place] [address] PCP - General Internal Medicine 11/16/20 Shelby Borja MD 584 [facility] [address] [place] [address] Primary Director Human Services Cardiovascular Disease 01/19/22 Rocio Jon PAPelonC [address] [place] [address] Physician Director Operating Cardiac Electrophysiology 09/08/23 documented as of this encounter
--- OUTSIDE RECORDS SUMMARY | 2024-09-17 17:40 | XMS_ITS | Encounter Summary ---
Author Organization [facility] Address [address] [place] [address] Care Team Providers Care Clearance Coordinator Name Role Phone Dhruv Clayton MD Primary Care Provider [phone] Shelby Borja MD Unavailable Rocio Jon PA-C Unavailable [phone] Encounter Details Date Type Department Care Team (Late st Contact Info) Description 09/09/2024 Telephone [facility] [place] [place] [address] Shelby Borja MD [address] [place] [address] [place] [address] Social History Tobacco Use Types Packs/Day Years [...] AM EST documented as of this encounter Miscellaneous Notes * Telephone Encounter - Shelby Borja MD - 09/09/2024 2:41 PM EDT I called and reviewed the echo results with the patient and his . LV function has improved. There was a wall motion abnormality that was not seen on the prior study however that area was not well-seen. This area however was similar to what was noted on the cardiac MRI done in 2022. Thus I do not feel that this abnormality is new. Both mitral and tricuspid regurgitation have improved documented in this encounter Plan of Treatment Upcoming Encounters Date Type Department Care Team (Late st Contact Info) Description 09/30/2024 8:40 AM EDT Office Visit [facility] [place] [address] [phone] Shelby Borja MD [address] [place] [address] 10/11/2024 1:00 PM EDT Office Visit [facility] Electrophysiology- [place] [address] [place] [address] Rocio Jon, PA-C [address] [place] [address] documented as of this encounter Visit Diagnoses Not on filedocumented in this encounter Care Teams Clearance Coordinator Relationship Specialty Start Date End Date Dhruv Clayton MD [address] [place] [address] PCP - General Internal Medicine 11/16/20 Shelby Borja MD 584 [facility] [address] [place] [address] Primary Sheet Rock Nailer Cardiovascular Disease 01/19/22 Rocio Jon PA-C [address] [address] Physician Research Hydrologist Cardiac Electrophysiology 09/08/23 documented as of this encounter
--- OUTSIDE RECORDS SUMMARY | 2024-09-17 17:40 | XMS_ITS | Encounter Summary ---
Author Organization [facility] Address [address] [place] [address] Care Team Providers Care Liquid Compounder Name Role Phone Aubrie Mchugh MD Primary Care Provider [phone] Dhruv Clayton MD Primary Care Provider Shelby Borja MD Unavailable Rocio Jon PA-C Unavailable [phone] Encounter Details Date Type Department Care Team (Late st Contact Info) Description 09/19/[address] [facility] Vascular [place] [address] [place] [address] Happys InnTrixie saunders [place] [address] [place] [address] [place] [address] Social History Tobacco Use Types Packs/Day Years [...] Description 09/30/2024 8:40 AM EDT Office Visit [facility] [address] [phone] Shelby Borja MD [address] [place] [address] 10/11/2024 1:00 PM EDT Office Visit [facility] Electrophysiology- [place] [address] [place] [address] Rocio Jon PA-C [address] [address] documented as of this encounter Visit Diagnoses Not on filedocumented in this encounter Care Teams Liquid Compounder Relationship Specialty Start Date End Date Aubrie Mchugh MD [address] [place] [address] PCP - General 08/18/16 11/15/20 Dhruv Clayton MD [address] [place] [address] PCP - General Internal Medicine 11/16/20 Shelby Borja MD [address] [place] [address] Primary Drawing Kiln Operator Cardiovascular Disease 01/19/22 Rocio Jon PAWellington [address] [address] Physician Client Experience Consultant Cardiac Electrophysiology 09/08/23 documented as of this encounter
--- OUTSIDE RECORDS SUMMARY | 2024-09-17 17:40 | XMS_ITS | Encounter Summary ---
Author Organization [facility] Address [address] [place] [address] Care Team Providers Care Gas Engine Performance Engineer Name Role Phone Aubrie Mchugh MD Primary Care Provider Dhruv Clayton MD Primary Care Provider Shelby Borja MD Unavailable Rocio Jon PA-C Unavailable [phone] Encounter Details Date Type Department Care Team (Late st Contact Info) Description 10/13/2020 Scanned Document [facility] Heart & Vascular [address] [address] Thor Morales MD [address] [place] [address] Social History Tobacco Use Types Packs/Day Years [...] 8:40 AM EDT Office Visit [facility] Heart & Vascular [place] [address] [place] [phone] Shelby Borja MD [address] [facility] [place] [address] 10/11/2024 1:00 PM EDT Office Visit [facility] Electrophysiology- [place] [address] [place] [address] Rocio Jon PAPelonC [address] [address] documented as of this encounter Visit Diagnoses Not on filedocumented in this encounter Care Teams Gas Engine Performance Engineer Relationship Specialty Start Date End Date Aubrie Mchugh MD [address] [place] [address] PCP - General 08/18/16 11/15/20 Dhruv Clayton MD [address] [place] [address] PCP - General Internal Medicine 11/16/20 Shelby Borja MD [address] [place] [address] Primary Interlocking Machine Operator Cardiovascular Disease 01/19/22 Rocio Jon PAPelonC [address] [place] [address] Physician Quality Control Lab Technician Cardiac Electrophysiology 09/08/23 documented as of this encounter
--- OUTSIDE RECORDS SUMMARY | 2024-09-17 17:40 | XMS_ITS | Encounter Summary ---
Author Organization [facility] Address [address] [place] [address] Care Team Providers Care Ship Scraper Name Role Phone Dhruv Clayton MD Primary Care Provider Shelby Borja MD Unavailable Rocio Jon PA-C Unavailable [phone] Encounter Details Date Type Department Care Team ([facility] Contact Info) Description 12/25/2020 Scanned Document [facility] Heart & Vascular [place] [address] [address] Thor Morales MD [address] [address] Social History Tobacco Use Types Packs/Day Years [...] Upcoming Encounters Date Type Department Care Team ([facility] Contact Info) Description 09/30/2024 8:40 AM EDT Office Visit [facility] Heart & Vascular [place] [address] [place] [phone] Shelby Borja MD [address] [place] [address] [place] [address] 10/11/2024 1:00 PM EDT Office Visit [facility] Electrophysiology- [place] [address] [place] [address] Rocio Jon PAPelonC [address] [place] [phone] documented as of this encounter Visit Diagnoses Not on filedocumented in this encounter Care Teams Ship Scraper Relationship Specialty Start Date End Date Dhruv Clayton MD [address] [place] [address] PCP - General Internal Medicine 11/16/20 Shelby Borja MD [address] [place] [address] [address] [place] [phone] Primary Licensed Insurance Agent Cardiovascular Disease 01/19/22 Rocio Jon PA-C [address] [place] [address] Physician Importer Or Exporter Cardiac Electrophysiology 09/08/23 documented as of this encounter
--- OUTSIDE RECORDS SUMMARY | 2024-09-17 17:40 | XMS_ITS | Encounter Summary ---
Author Organization [facility] Address [address] [place] [address] Care Team Providers Care Clinic Office Manager Name Role Phone Aubrie Mchugh MD Primary Care Provider Dhruv Clayton MD Primary Care Provider Shelby Borja MD Unavailable Rocio Jon PA-C Unavailable [phone] Encounter Details Date Type Department Care Team (Late st Contact Info) Description 10/15/2020 Scanned Document [facility] Heart & Vascular [address] [address] Thor Morales MD [address] [place] [address] Social History Tobacco Use Types Packs/Day Years [...] Visit [facility] Heart & Vascular [place] [address] [place] [phone] Shelby Borja MD 37 [facility] [place] [address] 10/11/2024 1:00 PM EDT Office Visit [facility] Electrophysiology- [place] [address] [place] [address] Rocio Jon PAPelonC [address] [address] documented as of this encounter Visit Diagnoses Not on filedocumented in this encounter Care Teams Clinic Office Manager Relationship Specialty Start Date End Date Aubrie Mchugh MD [address] [place] [address] PCP - General 08/18/16 11/15/20 Dhruv Clayton MD [address] [place] [address] PCP - General Internal Medicine 11/16/20 Shelby Borja MD [address] [place] [address] Primary Director Of Music Therapy Cardiovascular Disease 01/19/22 Rocio Jon PAPelonC [address] [place] [address] Physician J2Ee Architect Cardiac Electrophysiology 09/08/23 documented as of this encounter
--- OUTSIDE RECORDS SUMMARY | 2024-09-17 17:40 | XMS_ITS | Encounter Summary ---
Author Organization [facility] Address [address] [place] [address] Care Team Providers Care Risk Control Manager Name Role Phone Dhruv Clayton MD Primary Care Provider [phone] Shelby Borja MD Unavailable Rocio Jon PA-C Unavailable [phone] Encounter Details Date Type Department Care Team (Latest Contact Info) Description 09/09/2024 Travel Social History Tobacco Use Types Packs/Day [...] 09/30/2024 8:40 AM EDT Office [facility] Heart & Vascular [place] [address] [phone] Shelby Borja MD [address] [place] [address] 10/11/2024 1:00 PM EDT [facility]iology- [place] [address] [place] [address] Rocio Jon PAPelonC [address] [place] [address] documented as of this encounter Visit Diagnoses Not on filedocumented in this encounter Care Teams Risk Control Manager Relationship Specialty Start Date End Date Dhruv Clayton MD [address] [place] [address] PCP - General Internal Medicine 11/16/20 Shelby Borja MD 584 [facility] [address] [place] [address] Primary Quality Supervisor Cardiovascular Disease 01/19/22 Rocio Jon PAPelonC [address] [place] [address] Physician Meter Mechanic Cardiac Electrophysiology 09/08/23 documented as of this encounter
--- OUTSIDE RECORDS SUMMARY | 2024-09-17 17:40 | XMS_ITS | Encounter Summary ---
Author Organization [facility] Address [address] [place] [address] Care Team Providers Care Home Health Manager Name Role Phone Aubrie Mchugh MD Primary Care Provider [phone] Dhruv Clayton MD Primary Care Provider [phone] Shelby Borja MD Unavailable Rocio Jon PA-C Unavailable [phone] Encounter Details Date Type Department Care Team (Late st Contact Info) Description 10/01/2020 Scanned Document [facility] Heart & Vascular [address] [address] Thor Morales MD [address] [place] [address] Social History Tobacco Use Types Packs/Day Years [...] - [facility] Heart [facility] Vascular [place] [address] [place] [phone] Shelby Borja MD 37 [facility] [place] [address] 10/11/2024 1:00 PM EDT Office Visit [facility] Electrophysiology- [place] [address] [place] [phone] Rocio Jon PAPelonC [address] [address] documented as of this encounter Visit Diagnoses Not on filedocumented in this encounter Care Teams Home Health Manager Relationship Specialty Start Date End Date Aubrie Mchugh MD [address] [place] [address] PCP - General 08/18/16 11/15/20 Dhruv Clayton MD [address] [place] [address] PCP - General Internal Medicine 11/16/20 Shelby Borja MD [address] [place] [place] [address] Primary Second Butler Cardiovascular Disease 01/19/22 Rocio Jon PAPelonC [address] [place] [address] Physician Engagement Manager Cardiac Electrophysiology 09/08/23 documented as of this encounter
--- OUTSIDE RECORDS SUMMARY | 2024-09-17 17:40 | XMS_ITS | Encounter Summary ---
Author Organization [facility] Address [address] [place] [address] Care Team Providers Care High Risk Case Manager Name Role Phone Aubrie Mchugh MD Primary Care Provider [phone] Dhruv Clayton MD Primary Care Provider Shelby Borja MD Unavailable Rocio Jon PA-C Unavailable [phone] Encounter Details Date Type Department Care Team (Late st Contact Info) Description 10/07/2020 Scanned Document [facility] Heart & Vascular [address] [address] Thor Morales MD [address] [place] [address] Social History Tobacco Use Types Packs/Day Years [...] Office Visit [facility] Heart & Vascular [place] [address] [place] [phone] Shelby Borja MD 37 [facility] [place] [address] 10/11/2024 1:00 PM EDT Office Visit [facility] Electrophysiology- [place] [address] [place] [address] Rocio Jon PAPelonC [address] [address] documented as of this encounter Visit Diagnoses Not on filedocumented in this encounter Care Teams High Risk Case Manager Relationship Specialty Start Date End Date Aubrie Mchugh MD [address] [place] [address] PCP - General 08/18/16 11/15/20 Dhruv Clayton MD [address] [place] [address] PCP - General Internal Medicine 11/16/20 Shelby Borja MD [address] [place] [address] Primary Telehealth Nurse Cardiovascular Disease 01/19/22 Rocio Jon PAPelonC [address] [place] [address] Physician Buffing Line Set Up Worker Cardiac Electrophysiology 09/08/23 documented as of this encounter
--- OUTSIDE RECORDS SUMMARY | 2024-09-17 17:40 | XMS_ITS | Clinical Summary ---
Author Organization [facility] Address [address] [place] [address] Care Team Providers Care Armature Winder Repair Name Role Phone Dhruv Clayton MD Primary Care Provider [phone] Shelby Borja MD Unavailable Rocio Jon PA-C Unavailable [phone] Allergies No known active allergies Medications Medication Sig Dispensed Refills Start Date End Date Status raNOLazine (raNEXa) 500 MG 12 hr tabletIndications: Angina pectoris Take 1 tablet (500 mg total) by mouth twice daily (every 12 hours). Swallow tablet whole; do not crush, break, or chew. 60 tablet 3 11/18/2020 Active aspirin enteric coated (ECOTRIN LOW STRENGTH) 81 MG EC tablet Take 1 tablet (81 mg total) by mouth daily. Active nitroglycerin (NITROSTAT) 0.4 MG SL tabletIndications: S/P CABG x [address] 1 tablet (0.4 mg total) under the tongue every 5 (five) minutes as needed for chest pain. 25 tablet 1 06/08/2022 Active calcium carbonate (TUMS) 500 MG chewable tablet Chew 1 tablet (500 mg total) every 4 (four) hours as needed for indigestion or heartburn. Active esomeprazole (NexIUM) 40 MG capsule as needed. Active metoPROLOL TARTRATE (LOPRESSOR) 50 MG tabletIndications: PAF (paroxysmal atrial fibrillation) (HCC) Take 1 tablet (50 mg total) by mouth 2 (two) times a day. 180 tablet 3 09/26/2023 Active rosuvastatin (CRESTOR) 40 MG tabletIndications: Coronary artery disease involving coronary bypass graft of [place] heart without angina pectoris TAKE 1 TABLET BY MOUTH EVERY DAY 90 tablet 3 09/26/2023 Active Eliquis 5 MG tabletIndications: Atypical atrial flutter (HCC) TAKE 1 TABLET BY MOUTH TWICE A DAY 180 tablet 3 11/15/2023 Active mexiletine (MEXITIL) 150 MG capsuleIndications :PVC's (premature ventricular contractions) Take 1 capsule (150 mg total) by mouth 3 (three) times a day with meals. 270 capsule 3 01/01/2024 12/26/2024 Active Active Problems Problem Noted Date Diagnosed Date Abnormal glucose level 05/20/2024 Arthritis of knee 05/20/2024 Benign neoplasm of skin 05/20/2024 Disorder of carbohydrate metabolism 05/20/2024 Dizziness and giddiness 05/20/2024 Epidermoid cyst of skin 05/20/2024 Onychomycosis due to dermatophyte 05/20/2024 Type 2 diabetes mellitus without complication Overview (05/20/2024): not true Verruca vulgaris 05/20/2024 Pericardial cyst 11/08/2023 NSVT (nonsustained ventricular tachycardia) 12/02 Coronary artery disease invo lving coronary bypass graft of [place] heart without angina pectoris 02/23/2022 PAF (paroxysmal atrial fibrillation) 02/23/2022 Ischemic cardiomyopathy 02/23/2022 Mitral valve insufficiency 02/23/2022 Interatrial septal aneurysm with PFO 12/08/2021 History of cardioversion of atrial flutter 202112/08/2021 Atypical atrial flutter 03/31/2021 GERD (gastroesophageal reflux disease) Femoral artery hematoma complicating cardiac cat h 200512/07/2020 Non compliance with medical treatment 04/22/2019 S/P CABG x 2 200509/22/2016 Anxiety state 10/16/2009 Abdominal pain 10/15/2009 Derangement of knee 07/16/2009 Impacted cerumen 07/16/2009 Osteoarthritis 05/14/2009 Overview (05/20/2024): knees Benign neoplasm of colon 10/24/2008 External hemorrhoids 08/25/2008 Hemorrhage of rectum and anus 08/25/2008 Ingrown nail 04/22/2008 High cholesterol S/P right coronary artery (RCA) stent placement 2005 Overview (09/19/2016): S/P CABGx2 in 2006: stable class 1 angina Resolved Problems Problem Noted Date Diagnosed Date Resolved Date Acute upper respiratory infection 05/20/2024 06/17/2024 Persistent atrial fibrillation 12/08/2021 12/08/2021 Moderate mitral regurgitation 12/08/2021 02/23/2022 Heart palpitations 09/15/2021 Familial hypercholesterolemia 12/05/2017 02/23/2022 Ischemic cardiomyopathy (IMI 55+%) 12/05/2017 02/23/2022 Claudication of right lower extremity 12/05/2017 12/05/2017 Paroxysmal atrial fibrillation (CV=2) 02/23/2022 Overview (09/19/2016): PAF, CV=1 on ASA...quiet Nocturia 09/22/2016 Encounters Date Type Department Care Team Description 09/09/2024 Telephone [facility] [place] [address] [place] [address] [place] [address] Shelby Borja MD 09/09/2024 Travel 08/22/2024 7:55 AM EST - 08/22/2024 9:47 AM EST Emergency [facility] [address] [place] [phone] Gay Emerson DO Acute viral conjunctivitis of left eye (Primary Dx); Left temporal headache Discharge Disposition: Home or Self Care 08/22/2024 Travel from Last 3 Months Immunizations Name Administration Dates Next Due Covid-19 MRNA Vaccine - Pfiz er 12+ (Purple Cap) 08/30/2020,07/30/2020,07/09/2020,2000 H1N1 All Forms 06/04/2009 Influenza (AFLURIA/FLUZONE) Inactivated/Split Quadrivalent with Preservative IM 04/10/2014,04/22/2008 Influenza High-Dose Quadrivalent,(FLUZONE HIGH-DOSE), Perservative Free IM 0.7 mL 65 years and older 06/01/2022 Influenza High-Dose Trivalent,(FLUZONE HIGH-DOSE), Perservative Free IM 0.5 mL 65 years and older 07/06/2024 Influenza Inactivated/Split Preservative Free IM 04/10/2014 Influenza Virus Trivalent Sp lit Vaccine (MDV) IM 04/22/2008 Influenza, Quadrivalent (FLU ARIX, AFLURIA, FLULAVAL, FLUZONE) Preservative Free IM 05/20/2020,04/22/2019,04/13/2017,2015 Influenza, Recombinant, Quad rivalent (FLUBLOK) Preservative Free IM 05/11/2018 Influenza, Trivalent (FLUARI X, AFLURIA, FLULAVAL, FLUZONE) Preservative Free IM 05/07/2013,05/29/2012,05/16/2011 Influenza, Unspecified 06/13/2023 Tdap 02/12/2013 Zoster Vaccine Recombinant (Shingrix) 10/05/2022 ,04/27/2022 Zoster,unspecified 10/05/2022 Family History Relation Name Status Comments Father Mother Social History Tobacco Use Types Packs/Day Years Used Date Smoking Tobacco: Former Cigarettes Q uit: 10/2005 Smokeless Tobacco: Never Tobacco Cessation:Counseling Given: Not Answered Alcohol Use Standard Drinks/Week Comments Not Currently [...] Orientation Heterosexual (straight) 08/04 8:45 AM EST Last Filed Vital Signs Vital Sign Reading Time Taken Comments Blood Pressure 113/66 08/22/2024 9:48 AM EST Pulse 60 08/22/2024 9:48 AM EST Temperature 36.4 ??C (97.6 ??F) 08/22/2024 8:08 AM ES T Respiratory Rate 17 08/22/2024 9:48 AM EST Oxygen Saturation 98% 08/22/2024 9:48 AM EST Inhaled Oxygen Concentration - - Weight 90.7 kg (199 lb 15.3 oz) 08/22/2024 8:08 AM EST Height 175.3 cm (5' 9.02 ) 05/21/2024 1 2:31 PM EST Body Mass Index 29.51 05/21/2024 12:31 PM EST Plan of Treatment Upcoming Encounters Date Type Department Care Team (Late st Contact Info) Description 09/30/2024 8:40 AM EDT Office Visit [facility] [place] [address] [phone] Shelby Borja MD [address] [facility], [place] [phone] 10/11/2024 1:00 PM EDT Office Visit [facility] [address] [place] [phone] Rocio Jon, PAPelonC [address] [place] [phone] Health Maintenance Due Date Last Done Comments Hepatitis C Virus Screening 1956 Foot Exam 1966 Hemoglobin A1C 1966 Ophthalmology Exam 1966 Microalbumin/Creatinine Ratio Urine 1974 Pneumococcal Vaccines 50+ (1 of 2 - PCV) 11/01/1975 Colonoscopy 2001 RSV Vaccine 60 years and older and Patients (1 - Risk 60-74 years 1-dose series) 2016 Abdominal Aortic Aneurysm (AAA) Screening 2021 DTaP/Tdap/Td Vaccines (2 - Td or Tdap) 02/12/2023 02/12/2013 COVID-19 Vaccine ( season) 2024 01/28/2022, 05/21/2021, 08/30/2020, Additional history exists Creatinine with GFR 05/16/2025 05/16/2024, 07/06/2023, 04/26/2023, Additional history exists Lipid Panel 05/16/2025 05/16/2024, 10/2023, 11/16/2022, Additional history exists Zoster (Shingles) Vaccine Completed 2022, 10/05/2022, 04/27/2022 Influenza Vaccine Completed 07/06/2024, , 06/01/2022, Additional history exists Hepatitis B Vaccines Aged Out No long er eligible based on patient's age to complete this topic Procedures Procedure Name Priority Date/Time Associated Diagnosis Comments ECHOCARDIOGRAM (TTE) COMPREHENSIVE (CONTRAST PRN) Routine 09/09/2024 12:00 PM EDT Coronary artery disease involving coronary bypass graft of [place] heart without angina pectoris Mitral valve insufficiency, unspecified etiology ERYTHROCYTE SEDIMENTATION RATE (ESR) STAT 08/22/2024 8:55 AM EST LIPID PANEL REFLEX DIRECT LDL Routine 05/16/2024 9:17 AM EST Coronary artery disease involving coronary bypass graft of [place] heart without angina pectoris BASIC METABOLIC PANEL Routine 05/16/2024 9:17 AM EST Coronary artery disease involving coronary bypass graft of [place] heart without angina pectoris from Last 3 Months or Most Recently Relevant to Health Maintenance Results * ECHOCARDIOGRAM COMPREHENSIVE (09/09/2024 12:00 PM EDT) LV hays vol 3D 166.0 mL LV Diastolic Volume Index (F:29-61, M:35-75) 54.3 mL/m2 LV Diastolic Volume 112 mL LV sys vol 3D 75.0 mL LV Systolic Volume Index (F:8-24, M:11-31) 23.8 mL/m2 LV Systolic Volume 49 mL IVS (F:0.6-0.9, M:0.6-1.0) 0.9 cm IVS Mean (F:0.6-0.9, M:0.6-1.0) 0.9 cm LVIDD (F:3.8-5.2, M:4.2-5.8) 5.3 cm LVIDD Mean (F:3.8-5.2, M:4.2-5.8) 5.3 cm LVIDS (F:2.2-3.5, M:2.5-4.0) 3.1 cm LVIDS (F:2.2-3.5, M:2.5-4.0) 3.1 cm LVOT diameter 2.2 cm LVOT diameter mean 2.2 cm LVOT mn grad mean 1.0 mmHg LVOT VTI MEAN 18.3 cm LVOT mn grad 1.0 mmHg LVOT VTI 18.6 cm LVOT peak pipo 0.9 m/s LVOT peak pipo mean 0.8 m/s PW (F:0.6-0.9, M:0.6-1.0) 1.2 cm PW Mean (F:0.6-0.9, M:0.6-1.0) 1.2 cm MV E' Lateral Velocity 22.20 cm/s MV E' Lateral Velocity Mean 22.20 cm/s MV E' Septal Velocity 6.96 cm/s MV E' Septal Velocity Mean 6.96 cm/s LA sup-inf (apical 2-ch view) 7.20 cm LA volume 94.6 mL RA area 26.4 cm2 RA 2D Volume 89.6 mL AV mean gradient 4.0 mmHg Ao VTI 28.7 cm Ao peak pipo 1.3 m/s Sinuses of Valsalva 3.8 cm Sinuses of Valsalva Mean 3.8 cm Ascending aorta 3.1 cm Ascending aorta mean 3.1 cm Ascending aorta Index 1.5 cm/m2 Inferior Vena Cava Diameter 1.8 cm Inferior Vena Cava Diameter Mean 1.8 cm E wave decelartion time 338 ms E wave decelartion time mean 338 ms MV stenosis pressure 1/2 time mean 70 ms MV stenosis pressure 1/2 time 70 ms MV Peak A-Wave 40.9 cm/s MV Peak A-Wave Mean 40.9 cm/s MV Peak E-Wave 53.5 cm/s MV Peak E-Wave Mean 53.5 cm/s MV mean gradient mean 1.0 mmHg MV VTI MEAN 24.3 cm MV mean gradient 1.0 mmHg MV VTI 24.3 cm MV peak gradient 2.0 mmHg PV PEAK VELOCITY 1.4 m/s PV PEAK VELOCITY Mean 1.3 m/s RVID d 4.8 cm RVID d Mean 4.8 cm RV Free wall pk S' 7.5 cm/s RV Free wall pk S' Mean 7.5 cm/s Tapse 1.8 cm Tapse Mean 1.8 cm TR Peak Pipo 2.6 m/s Heart Rate 59 bpm BP Systolic 120 mmHg BP Diastolic 68 mmHg Height 69.00 inches Weight 199.00 lbs LA Volume Index (16-34) 45.9 mL/m2 E/E' ratio 2.41 LVOT area 3.8 cm2 E/A ratio 1.31 MV valve area p 1/2 method 3.14 cm2 Sinuses of Valsalva Index 1.8 cm/m2 EF - 3D Echo 55 % Amaya BP EF (55-75) 56 % LA Volume Index 43.5 mL/m2 E/E' Average 5.0 E/E' Septal 7.7 E/E' Lateral 2.4 BSA 2.06 m2 LV mass 213.9 g LV Mass Index (F:43-95, M:49-115) 103.8 g/m2 LV RWT 0.45 TR Peak Gradient 27 mmHg GLS 17.6 % AV LVOT peak gradient 3.2 mmHg RV-hays length 8.1 cm RV Mid Diameter 3.5 cm AV peak gradient 6.8 mmHg LVOT stroke volume 71 mL SVI 34 mL/m2 Left Ventricular Cardiac Index 2.0 L/min/m2 Left Ventricular Cardiac Output 4.2 L/min AV area by cont VTI 2.5 cm2 Valve area - Index 1.2 cm2/m2 Dimensionless Index 0.65 MV valve area by continuity eq 2.9 cm2 LVOT SI 34.28 mL/m2 PV peak gradient 7.8 mmHg Est. RA pres 3 mmHg RVSP 30 mmHg PASP 30.0 mmHg Anatomical Region Laterality Modality Ultrasound Narrative 09/09/2024 2:11 PM EDT ?The left ventricle is normal in size. Concentric remodeling of the left ventricle is present. ??There appears to be mild hypokinesis of the inferoseptal segment. ??There is echo dropout of the inferobasilar segment Left ventricular systolic function is normal. The quantitative EF by 3D imaging is 55%. Global longitudinal strain is normal at -17.6%. Diastolic function is normal. ?The right ventricle is moderately dilated. Right ventricular systolic function is low normal. Normal tricuspid annular plane systolic excursion (TAPSE) >1.6 cm. Abnormal systolic excursion velocity by TDI (<9.5cm/s). ?Right atrial cavity is moderately dilated. An atrial septal aneurysm is present. ?The left atrial cavity is moderately dilated. ?There is mild to moderate tricuspid regurgitation. The estimated right ventricular systolic pressure is normal at 30 mmHg. ?The mitral valve is structurally normal. The mitral leaflets exhibit normal excursion. There is mild mitral annular calcification. There is mild to moderate mitral regurgitation. ?The ascending aorta dimension is normal. The aortic root is mildly dilated at 3.8 cm (1.8 cm/m2). ?The aortic valve is tricuspid. The aortic valve leaflets exhibit normal excursion.The aortic valve leaflets are mildly calcified. ?Compared to previous study on 06/2022, there have been ??clinically significant changes. ??LV function has improved. ??The last study may have been more limited. ??The wall motion was not noted however this territory was not well-seen. ??Reviewing his more recent cardiac MRI there was a similar wall motion abnormality. ??Both mitral regurgitation and tricuspid regurgitation appear slightly lower. ??The aortic root is mildly dilated Technical Details Overall the study quality was adequate. 3D echocardiographic imaging of left ventricle structure and function and atrial structures assessment was performed demonstrating the following study findings. Left Ventricle The left ventricle is normal in size. Concentric remodeling of the left ventricle is present. There appears to be mild hypokinesis of the inferoseptal segment. There is echo dropout of the inferobasilar segment Left ventricular systolic function is normal. The quantitative EF by 3D imaging is 55%. Global longitudinal strain is normal at -17.6%. Diastolic function is normal. Right Ventricle The right ventricle is moderately dilated. Right ventricular systolic function is low normal. Normal tricuspid annular plane systolic excursion (TAPSE) >1.6 cm. Abnormal systolic excursion velocity by TDI (<9.5cm/s). Wall thickness is normal. Left Atrium The left atrial cavity is moderately dilated. Right Atrium Right atrial cavity is moderately dilated. Based on IVC diameter and collapse, right atrial pressure is estimated to be normal (3 mmHg). There is no evidence of an intra-atrial shunt by color Doppler. An atrial septal aneurysm is present. Mitral Valve The mitral valve is structurally normal. The mitral leaflets exhibit normal excursion. There is mild mitral annular calcification. There is mild to moderate mitral regurgitation.There is no mitral valve stenosis. Tricuspid Valve The tricuspid valve is structurally normal. The tricuspid valve leaflets exhibit normal excursion. There is mild to moderate tricuspid regurgitation. There is no tricuspid valve stenosis. The estimated right ventricular systolic pressure is normal at 30 mmHg. Aortic Valve The aortic valve is tricuspid. The aortic valve leaflets exhibit normal excursion.The aortic valve leaflets are mildly calcified. There is no aortic regurgitation or stenosis. Pulmonic Valve The pulmonic valve is structurally normal. The pulmonic valve leaflets exhibit normal excursion. There is trace pulmonic regurgitation. There is no pulmonic valve stenosis. Ascending Aorta The ascending aorta dimension is normal. The aortic root is mildly dilated at 3.8 cm (1.8 cm/m2). Pericardium There is no pericardial effusion. Prior Study Compared to previous study on 06/2022, there have been clinically significant changes. LV function has improved. The last study may have been more limited. The wall motion was not noted however this territory was not well-seen. Reviewing his more recent cardiac MRI there was a similar wall motion abnormality. Both mitral regurgitation and tricuspid regurgitation appear slightly lower. The aortic root is mildly dilated Shelby Borja MD CV ECHO ORDERABLES * Erythrocyte Sediment Rate (ESR) (08/22/2024 8:55 AM EST) Erythrocyte Sediment Rate (ESR) 4 <20 MM/HR 08/22/2024 9:36 AM EST [facility] Blood Blood specimen / Unknown 08/22/2024 8:55 AM EST 08/22/2024 8:58 AM EST Gay Stockton [place] [address], * Lipid Panel Reflex Direct LDL (05/16/2024 9:17 AM EST) Cholesterol, Total 125 <200 mg/dL [facility] Cholesterol, HDL 61 > OR = 40 mg/dL [facility] Triglycerides 61 <150 mg/dL [facility] LDL Cholesterol 50 mg/dL (calc) [facility] Comment: Reference range: <100 Desirable range <100 mg/dL for primary prevention; ?? <70 mg/dL for patients with CHD or diabetic patients with > or = 2 CHD risk factors. LDL-C is now calculated using the Sundar calculation, which is a validated novel method providing better accuracy than the Friedewald equation in the estimation of LDL-C. Zacarias SS et al. QUYEN. 2013;310(19): 7909-1721 (http://education.made.com/faq/CXD050) Cholesterol/HDL Ratio 2.0 <5.0 (calc) [facility] Non HDL Chol. (LDL+VLDL) 64 <130 mg/dL (calc) [facility] Comment: For patients with diabetes plus 1 major ASCVD risk factor, treating to a non-HDL-C goal of <100 mg/dL (LDL-C of <70 mg/dL) is considered a therapeutic option. Blood specimen (specimen) 05/16/2024 9:17 AM EST 05/16/2024 9:17 AM EST Shelby Borja MD LAB BLOOD ORDERABLES [facility] [address] [place] [phone] * (ABNORMAL) BASIC METABOLIC PANEL (05/16/2024 9:17 AM EST) Glucose 113(H) 65 - 99 mg/dL [facility] Comment: ? Fasting reference interval For someone without known diabetes, a glucose value between 100 and 125 mg/dL is consistent with prediabetes and should be confirmed with a follow-up test. Blood Urea Nitrogen (BUN) 13 7 - 25 mg/dL [facility] Creatinine 0.92 0.70 - 1.35 mg/dL [facility] Creatinine w/ eGFR 91 > OR = 60 mL/min/1. 73m2 [facility] BUN/Creatinine Ratio SEE NOTE: 6 - 22 (calc) [facility] Comment: ?? Not Reported: BUN and Creatinine are within ?? reference range. ? Sodium 140 135 - 146 mmol/L [facility] Potassium 4.3 3.5 - 5.3 mmol/L [facility] Chloride 100 98 - 110 mmol/L [facility] CO2 33(H) 20 - 32 mmol/L [facility] Calcium 9.7 8.6 - 10.3 mg/dL [facility] Blood specimen (specimen) 05/16/2024 9:17 AM EST 05/16/2024 9:17 AM EST Shelby Borja MD LAB BLOOD ORDERABLES [facility] [address] [place] [phone] from Last 3 Months or Most Recently Relevant to Health Maintenance Advance Directives * Full Code (Latest Code Status on File) Date Activated Date Inactivated Comments 11/21/2022 1:08 PM 02/22/2023 10:56 PM * Full Code Date Activated Date Inactivated Comments 12/07/2020 7:56 AM 04/08/2022 9:50 AM Care Teams Armature Winder Repair Relationship Specialty Start Date End Date Dhruv Clayton MD [address] [place] [address] PCP - General Internal Medicine 11/16/20 Shelby Borja MD [address] [place] [address] [address] [place] [address] Primary Metal Casket Maker Cardiovascular Disease 01/19/22 Rocio Jon, PA-C [address] [place] [address] [address] [place] [address] Physician Workers Compensation Analyst Cardiac Electrophysiology 09/08/23
--- OUTSIDE RECORDS SUMMARY | 2024-09-17 17:40 | XMS_ITS | Encounter Summary ---
Author Organization [facility] Address [address] [place] [address] Care Team Providers Care City Jailer Name Role Phone Dhruv Clayton MD Primary Care Provider Shelby Borja MD Unavailable Rocio Jon PA-C Unavailable [phone] Encounter Details Date Type Department Care Team (Late st Contact Info) Description 11/15/2022 Prep for Surgery [facility] - Cardiology [address] [place] [address] Abdirahman Graham MD [address] [place], [place] [id number] Social History Tobacco Use Types Packs/Day Years Used Date Smoking Tobacco: Former Cigarettes Q uit: 10/2005 Smokeless Tobacco: Never Alcohol Use Standard Drinks/Week Comments Yes 7 (1 standard drink = 0.6 oz pur e alcohol) AUDIT-C Answer Date Recorded Q1: How often [...] suspected to have Coronavirus/COVID-19? No / Unsure 11/16/2022 9:41 AM EDT documented as of this encounter Plan of Treatment Upcoming Encounters Date Type Department Care Team (Late st Contact Info) Description 09/30/2024 8:40 AM EDT Office Visit [facility] [place] [address] [place] [phone] Shelby Borja MD [address] [place] [id number] 10/11/2024 1:00 PM EDT Office Visit [facility] Electrophysiology- [place] [address] [place] [phone] Rocio Jon, PA-C [address] [place] [address] documented as of this encounter Visit Diagnoses Not on filedocumented in this encounter Care Teams City Jailer Relationship Specialty Start Date End Date Dhruv Clayton MD [address] [place] [address] PCP - General Internal Medicine 11/16/20 Shelby Borja MD [address] [facility] [address] [place] [address] Primary Research Specialist Cardiovascular Disease 01/19/22 Rocio Jon, PA-C [address] [place] [address] Physician Optics Technical Officer Cardiac Electrophysiology 09/08/23 documented as of this encounter
--- OUTSIDE RECORDS SUMMARY | 2024-09-17 17:40 | XMS_ITS | Data Portability ---
Author Organization [facility], _TONO Address [address] [place] [address] Care Team Providers Care Provider Education Specialist Name Role Phone LAURA SCHWARTZ OTHER JENNIFER SIDDIQUI OTHER BOY HUSAIN OTHER Assessment No assessment recorded. Plan of Treatment Reminders Order Date Submit Date Provider Last Modified By Organization Details Last Modified Time Details Appointments OFFICE 15 2024 02:15P Kevin Clayton MD Not available Not available Not available PHYSICAL 30 2025 10:00A Kevin Clayton MD Not available Not available Not available Lab unlisted lab - PSA total (reflex to free) 2024 025 [facility] (Formerly [facility]), [address] [place] [address], [id number], 07/05/2024 13:05:24 vitamin B12, serum 2024 025 [facility] ([facility]ly [facility]), [address] [place] [address], [address], 07/05/2024 13:05:25 lipid panel, serum 2024 025 [facility] ([facility]ly [facility]), [address] [place] [address], [address], 07/05/2024 13:05:25 CMP, serum or plasma 2024 025 [facility] (Formerly [facility]), [address], [place], [address], 07/05/2024 13:05:25 CBC w/ auto diff 2024 025 [facility] ([facility]ly [facility]), [address], [place], [address], 07/05/2024 13:05:24 TSH, 2nd Generatio n, QN, serum or plasma 2024 025 [facility] ([facility]ly [facility]), [address], [place], [address], 07/05/2024 13:05:24 vitamin B12, serum 2022 023 [facility] ([facility]), [address], [place], [address], 06/22/2023 13:48:13 TSH + free T4, serum 2022 023 [facility] ([facility]ly [facility]), [address], [place], [address], 06/22/2023 13:48:13 lipid panel, serum 2022 023 [facility] ([facility]), [address], [place], [address], 06/22/2023 13:48:13 CMP, serum or plasma 2022 023 [facility] ([facility]), [address], [place], [address], 06/22/2023 13:48:13 CBC w/ auto diff 2022 023 [facility] ([facility]), [address], [place], [address], 06/22/2023 13:48:13 urinalysi s, dipstick 2022 023 [place] In-House Test, For Internal Use Only, Do Not Delete/merge, [id number] 06/22/2023 15:45:34 Referral None recorded. Procedures cerumen removal using irrigatio n (PROC) 20[facility] [address] [facility], [place], [address], 11/16/2022 15:34:31 Surgeries None recorded. Imaging None recorded. Medication Orders Diflucan 100 mg tablet 2023 025 [place] [id number], [address] [place], [address], 07/05/2024 11:08:01 Patient TargetsNo targets recorded. Patient Instructions Encounter Date Encounter Id Patient Instructions Last Modified By Organization Details Last Modified Time 11/16/2022 [id number] high blood pressure: care instructions rwilcon Not available 11/16/2022 10:36:26 learning about high blood pressure rwilcon Not available 11/16/2022 10:36:26 continue current meds rwilcon Not available 11/16/2022 10:35:35 htn controlled b p a little low but no dizziness. continue current meds which are also for his heart. bilateral ceruman ears flushed by RN rwilcon Not available 11/16/2022 10:36:06 02/27/2023 [id number] patient with bleeding from mucous membranes in the mouth after using listerine. he is on eliquis suspect the listerine irritated the mucous membranes no bleeding past 4 days. labs in ed looked ok will stop listerine and follow rwilcon Not available 02/27/2023 12:08:47 06/22/2023 [id number] When You Want to Lose Weight: Care Instructions rwilcon Not available 06/22/2023 11:44:59 high cholesterol : care instructions rwilcon Not available 06/22/2023 11:44:59 high blood pressure: care instructions rwilcon Not available 06/22/2023 11:44:59 learning about high blood pressure rwilcon Not available 06/22/2023 11:44:59 continue current meds return for fasting labwork rwilcon Not available 06/22/2023 11:57:41 no new findings on exam has vericose veins he is interested in referal to a specialist but wants a particular one in [facility] he will get me the name. poor short term memory ? age related check b12, thyroid. order fasting labwork he is UTD on colonoscopy rwilcon Not available 06/22/2023 11:58:45 11/10/2023 [id number] jock itch: care instructions rwilcon Not available 11/10/2023 11:39:51 start diflucan daily rwilcon Not available 11/10/2023 11:41:28 rash in groin? fungal will start diflucan. stop the lotrimin an bactrim. if no better refer to dermatology rwilcon Not available 11/10/2023 11:42:13 07/05/2024 [id number] vitamin D rwilcon Not available 07/05 11:42:55 high cholesterol : care instructions rwilcon Not available 07/05/2024 11:42:55 high blood pressure: care instructions rwilcon Not available 07/05/2024 11:42:55 learning about high blood pressure rwilcon Not available 07/05/2024 11:42:54 continue current meds return for fasting labwork rwilcon Not available 07/05/2024 11:41:40 no new findings on exam continue current meds. fasting labowrk ordered he is UTD on colonoscopy rwilcon Not available 07/05/2024 11:42:08 Reason for Referral None Reported. Results Created Date Observation Date Name Description Value Unit Range Abnormal Flag Note LastModifiedBy Organization Detail LastModifiedTime 06/22/2006/22/2023 urina lysis , dipst ick leukocyte esterase negati ve Not Available In-House Test For Internal Use Only, Do Not Delete/merge, [id number] 06/22/2023 11:23:07 06/22/20 23 06/22/2023 urina lysis , dipst ick nitrite negati ve Not Available In-House Test For Internal Use Only, Do Not Delete/merge, [id number] 06/22/2023 11:23:07 06/22/20 23 06/22/2023 urina lysis , dipst ick urobilinogen 0.2-1. 0 E unts Not Available In-House Test For Internal Use Only, Do Not Delete/merge, [id number] 06/22/2023 11:23:07 06/22/20 23 06/22/2023 urina lysis , dipst ick protein negati ve Not Available In-House Test For Internal Use Only, Do Not Delete/merge, [id number] 06/22/2023 11:23:07 06/22/20 23 06/22/2023 urina lysis , dipst ick pH 5.0-9. 0 Not Available In-House Test For Internal Use Only, Do Not Delete/merge, [id number] 06/22/2023 11:23:07 06/22/20 23 06/22/2023 urina lysis , dipst ick blood negati ve Not Available In-House Test For Internal Use Only, Do Not Delete/merge, [id number] 06/22/2023 11:23:07 06/22/20 23 06/22/2023 urina lysis , dipst ick specific gravity 1.003- 1.030 Not Available In-House Test For Internal Use Only, Do Not Delete/merge, [id number] 06/22/2023 11:23:07 06/22/20 23 06/22/2023 urina lysis , dipst ick ketone negati ve Not Available In-House Test For Internal Use Only, Do Not Delete/merge, [id number] 06/22/2023 11:23:07 06/22/20 23 06/22/2023 urina lysis , dipst ick bilirubin negati ve Not Available In-House Test For Internal Use Only, Do Not Delete/merge, [id number] 06/22/2023 11:23:07 06/22/20 23 06/22/2023 urina lysis , dipst ick glucose negati ve Not Available In-House Test For Internal Use Only, Do Not Delete/merge, [id number] 06/22/2023 11:23:07 06/22/20 23 06/22/2023 urina lysis , dipst ick color light yellow Not Available In-House Test For Internal Use Only, Do Not Delete/merge, 06/22/2023 11:23:07 06/22/20 23 06/22/2023 urina lysis , dipst ick appearance clear Not Available In-Hous e Test For Internal Use Only, Do Not Delete/merge, 06/22/2023 11:23:07 07/05/19 25 07/05/2024 urina lysis , dipst ick leukocyte esterase neg negati ve Not Available In-House Test For Internal Use Only, Do Not Delete/merge, 07/05/2024 12:04:39 07/05/19 25 07/05/2024 urina lysis , dipst ick nitrite neg negati ve Not Available In-House Test For Internal Use Only, Do Not Delete/merge, 07/05/2024 12:04:39 07/05/19 25 07/05/2024 urina lysis , dipst ick urobilinogen 0.2 0.2-1. 0 E unts Not Available In-House Test For Internal Use Only, Do Not Delete/merge, 07/05/2024 12:04:39 07/05/19 25 07/05/2024 urina lysis , dipst ick protein neg negati ve Not Available In-House Test For Internal Use Only, Do Not Delete/merge, 07/05/2024 12:04:39 07/05/19 25 07/05/2024 urina lysis , dipst ick pH 6.0 5.0-9. 0 Not Available In-House Test For Internal Use Only, Do Not Delete/merge, 07/05/2024 12:04:39 07/05/19 25 07/05/2024 urina lysis , dipst ick blood neg negati ve Not Available In-House Test For Internal Use Only, Do Not Delete/merge, 07/05/2024 12:04:39 07/05/19 25 07/05/2024 urina lysis , dipst ick specific gravity 1.025 1.003- 1.030 Not Available In-House Test For Internal Use Only, Do Not Delete/merge, 07/05/2024 12:04:39 07/05/19 07/05/2024 urina lysis , dipst ick ketone neg negati ve Not Available In-House Test For Internal Use Only, Do Not Delete/merge, [id number] 07/05/2024 12:04:39 07/05/19 25 07/05/2024 urina lysis , dipst ick bilirubin neg negati ve Not Available In-House Test For Internal Use Only, Do Not Delete/merge, 07/05/2024 12:04:39 07/05/19 25 07/05/2024 urina lysis , dipst ick glucose 500 negati ve Not Available In-House Test For Internal Use Only, Do Not Delete/merge, 07/05/2024 12:04:39 07/05/19 25 07/05/2024 urina lysis , dipst ick color orange light yellow Not Available In-House Test For Internal Use Only, Do Not Delete/merge, 07/05/2024 12:04:39 07/05/1907/05/2024 urina lysis , dipst ick appearance clear clear Not Available In-Hous e Test For Internal Use Only, Do Not Delete/merge, 07/05/2024 12:04:39 Result Notes None recorded. Problems Name Problem SNOMED Code Status Onset Date Resolution Date Notes Provider Name and Address Organization Details Recorded Time Derangem ent of knee 40281948 Completed 200907/06/2018 LAURA YEPEZ MD [address] [place], [address], [place] [facility] 9 12:40:17 Gastroes ophageal reflux disease 536195195 Active 07/21 in remissio n LAURA YEPEZ MD [address] [place], [address], [place] [facility] 9 10:33:13 Disorder of carbohyd rate metaboli sm 64037712 Completed 05/07/2013 Aubrie Mchugh MD [address] [place] [address], [address], [place] - [facility] 6 08:55:54 Benign essentia l hyperten jada 2101103 Active [place], [address], [place] [facility] 6 09:06:40 Tracey lutz [id number] Completed 200901/21/2016 Aubrie Mchugh MD [address] [place], [address], [place] [facility] 6 08:55:54 Anxiety state 406964829 Completed 200907/10/2018 LAURA YEPEZ MD [address] [place], [address], [place] [facility] 9 10:03:54 Glucose level outside referenc e range 101284327 Completed 10/11/2013 Aubrie Mchugh MD [facility] [place], [address], [place] [facility] 6 08:55:54 Osteoart hritis 095776610 Active 2008 knees Aubrie Mchugh MD [facility] [place], [address], [place] [facility] 6 08:55:54 Dizzines s and giddines s 633283441 Completed 09/24/2014 Aubrie Mchugh MD [facility] [place], [address], [place] [facility] 6 08:55:54 Acute upper respirat ory infectio n 30731152 Completed 10/11/2013 Aubrie Mchugh MD [address] [place] [address] [place], [address], [place] - [facility] 6 08:55:54 Hemorrha ge of rectum and anus 814641693 Completed 200807/10/2018 LAURA YEPEZ MD [address] [place], [address], [place] [facility] 9 10:07:29 Abdomina l pain 54312983 Completed 200907/06/2018 LAURA YEPEZ MD [address] [place], [address], [place] [facility] 9 12:39:38 Linwood dooley [id number] Completed 200704/29/2010 Aubrie Mchugh MD [address] [place], [address], [facility] 6 08:55:54 Benign neoplasm of colon 70163783 Completed 200807/06/2018 LAURA YEPEZ MD [address], [place], [address], [facility] 9 12:43:19 Type 2 diabetes mellitus without complica tion 294518697 Completed 05/07/2013 not true Aubrie Mchugh MD [address] [place], [address], [facility] 6 08:55:54 Hyperlip idemia 40714595 Active 08/2016- HDL 45, LDL 106 on atorvast atin 20 10/2018- T chol 107 Trig's 57 HDL 44 LDL 52 Aubrie Mchugh MD [address] [place], [address], [facility] 9 19:15:29 Ganglion and cyst of synovium , tendon and bursa Completed 200811/06/2011 Aubrie Mchugh MD [address] [place], [address], [facility] 6 08:55:54 Coronary atherosc lerosis 022755598 Active 2007 ETT Myoview : 10/2015- Abnormal . No evidence for ischemia at 76%, therefor e it is submaxim al. Fixed defect explaine d by artifact . Preserve d systolic function . ETT Myoview- 10/02/17 - Abnormal . No evidence of exercise induced angina. Borderli ne EKG changes with abnormal resting baseline . Small area of subtle ischemia with confound ing artifact . Posterio r WMA c/w prior MO with preserve d EF at 55%. Dr. Schwartz - 12/05/17- s/p CABG x2, familial hypercho lesterol emia, s/p RCA stent placemen t, PAF- EKG- SR with age indeterm inate inferior wall MO which is chronic. Stress test 10/02/17- no evidence for exercise induced angina with borderli ne EKG changes, small subtle defect in the posterio r lateral wall which is confound ed by diaphrag matic attenuat on, posterio r wall hypokine sis with an EF at 55%. Follow up 6 mns. Aubrie Mchugh MD [address] [place], [address], [place] [facility] 9 08:31:53 Synovial cyst of poplitea l space Completed 200805/30/2012 Aubrie Mchugh MD [address] [place], [address], [place] [facility] 6 08:55:54 External hemorrho ids 58361946 Completed 200811/06/2011 Aubrie Mchugh MD [address] [place], [address], [place] [facility] 6 08:55:54 Complain ing of cold feet Completed 01/21/2016 Aubrie Mchugh MD [address] [place], [address], [place] [facility] 6 08:55:54 Arthriti s of knee 672726932 Completed 07/06/2018 LAURA YEPEZ MD [address] [place] [address], [address], [place] [facility] 9 12:39:49 Hypergly cemia 47997052 Active Aubrie Mchugh MD [address] [place], [address], [place] - [place] [facility] 6 09:06:40 Injury of groin 83479606 Completed 04/10/2017 Aubrie Mchugh MD [address] [place], [address], [place] [facility] 7 09:06:17 Obesity 522904628 Active Aubrie Mchugh MD [address] [place], [address], [place] [facility] 6 08:55:54 Verruca vulgaris 38640220 Completed 01/21/2016 Aubrie Mchugh MD [address] [place], [address], [place] [facility] 6 08:55:54 Epidermo id cyst of skin 684797037 Completed 09/24/2014 Aubrie Mchugh MD [address] [place], [address], [place] [facility] 6 08:55:54 Onychomy cosis due to dermatop hyte 327912507 Completed 01/21/2016 Aubrie Mchugh MD [address] [place], [address], [place] - [facility] 6 08:55:54 Benign neoplasm of skin 39183848 Completed 09/24/2014 [place], [address], [place] - [facility] 6 08:55:54 Upper respirat ory infectio n 16979248 Completed 04/10/2017 Aubrie Mchugh MD [facility] [place], [address], [place] [facility] 7 09:05:51 Adult health examinat ion Active 2016 CPE: 04/28/16 EK/06, 09/04/07 sinus rhythm, old inferior [place] Spiromet ry: 09/08/04 mild COPD Colonosc opy: 10/24/08 rectal hyperpla stic polyps, repeat in [address] Mccall - 010- 4 mm left UPJ stone Carotid Duplex - 011- low grade placque burden, stenosis <50% Aubrie Mchugh MD [address] [facility] [place], [address], [place] [facility] 7 09:12:28 Paroxysm al atrial fibrilla tion 741502631 Active 2018 2018 nsr LAURA YEPEZ MD [address] [facility], [place], [address], [place] [facility] 9 12:47:47 Problem Notes None recorded. Procedures Surgical History Date Name Laterality Status Provider Name and Address Organization Details Recorded Time 08/11/19 21 colonoscopy completed Dhruv Clayton MD [address], [place], [address], [place] [facility] 08/14/2020 16:18:26 04/13/20 17 Ear Flush completed Aubrie Mchugh MD [address] [place], [address], [place] [facility] 04/13/2017 13:45:43 11/25/19 16 Cerumen Removal completed Hugo Cesar DO [address] [place], [address], [place] [facility] 11/25/2015 11:29:09 09/25/19 15 Ear Flush completed Aubrie Mchugh MD [address] [place], [address], [place] - [facility] 09/24/2014 14:09:47 04/10/20 14 Ear Flush completed Deanna [place] [facility] 04/10/2014 10:49:05 10/12/19 14 Ear Flush completed Aubrie Mchugh MD [address] [place], [address], [place] - [place] [facility] 10/11/2013 10:40:52 05/29/20 12 Ear Flush completed Aubrie Mchugh MD [address] [place], [address], [place] - [facility] 05/30/2012 19:04:34 11/04/19 12 Cerumen Removal completed Aubrie Mchugh MD [address] [place], [address], [place] [facility] 11/06/2011 19:44:29 11/24/19 11 Cerumen Removal completed Aubrie Mchugh MD [address] [place], [address], [place] [facility] 11/23/2010 22:33:24 10/25/19 09 Colonoscopy and biopsy completed Not Available [facility] 05/19/2011 04:49:59 06/06/20 06 Angioplasty completed Not Available [facility] 05/19/20 11 04:49:47 11/01/19 06 CABG completed Not Available [facility] 1 04:49:47 07/03/18 92 Other completed Not Available [facility] 04:49:47 Hernia Repair completed Not Available [facility] 12/28/2013 06:58:05 Imaging Results None recorded. Procedure Notes None recorded. Medical Equipment None Reported. Allergies No known drug allergies Medications Name Sig Start Date Stop Date Status Note LastModified by Organization Details LastModified Time fluconazo le 100 mg tablet TAKE 1 TABLET BY MOUTH EVERY DAY FOR 10 DAYS 07/05 completed Not Available Not Available Not Available Augmentin 875 mg-125 mg tablet Take 1 tablet every 12 hours by oral route until gone for bronchit is. 04/10 completed End of course Not Available Not Available Not Available Colace 100 mg capsule Take 1 capsule every day by oral route. 07/06 completed end Not Available Not Available Not Available doxycycli ne hyclate 100 mg capsule TAKE 1 CAPSULE BY MOUTH TWICE A DAY STAY UPRIGHT X 1 HOUR, AVOID SUNBATHI NG AND DAIRY/IR ON PRODUCTS 06/01 completed end of course Not Available Not Available Not Available atorvasta tin 20 mg tablet TAKE 1 TABLET BY MOUTH EVERY DAY 02/21 completed changed Not Available Not Available Not Available atorvasta tin 10 mg tablet TAKE 1 TABLET BY MOUTH ONCE DAILY 2012 active Dose was increase d Not Available Not Available Not Available azithromy mayur 250 mg tablet 07/10 completed Not Available Not Available Not Available famotidin e 40 mg tablet 06/01 completed takes one in AM and one in PM Using as needed pe pt 11/17/21 Not Available Not Available Not Available Debrox 6.5 % ear drops 3-4 drops in affected ear canal q hs for 4-5 days then repepat weekly to prevent accumula tion of wax 2010 active Not Available Not Available Not Avai lable clobetaso l 0.05 % topical cream Apply to affected areas of hands twice daily for two to three weeks 10/11 completed end of course Not Available Not Available Not Available Nexium 40 mg capsule,d elayed release prn active Not Available Not Available Not Available sulfameth oxazole 800 mg-trimet hoprim 160 mg tablet TAKE 1 TABLET BY MOUTH TWICE A DAY 07/05 completed Not Available Not Available Not Available Nexium 20 mg capsule,d elayed release PRN 07/10 completed prn Not Available Not Available Not Available oxycodone -acetamin ophen 5 mg-325 mg tablet active Not Available Not Available Not Available alprazola m 0.25 mg tablet TAKE 1 TABLET EVERY DAY BY ORAL ROUTE NEEDED. 07/05 completed Not Available Not Available Not Available lorazepam 0.5 mg tablet 1-2 tabs every 8 hours prn anxiety active Not Available Not Available No t Available tamsulosi n 0.4 mg capsule active Not Available Not Available Not Available benzonata te 100 mg capsule Take 1 capsule 3 times a day by oral route as directed for 4 days. 10/11 completed Not Available Not Available Not Available mexiletin e 150 mg capsule TAKE 1 CAPSULE BY MOUTH 3 TIMES A DAY WITH MEALS. active Not Available Not Available No t Available cephalexi n 500 mg capsule 04/18 completed end Not Available Not Available Not Available clotrimaz ole-betam ethasone 1 %-0.05 % topical cream Apply to the affected and surround ing areas of skin by topical route in the morning and evening rob90-32 days 07/06 completed end Not Available Not Available Not Available prednison e 50 mg tablet TAKE 1 TABLET BY MOUTH EVERY DAY FOR 5 DAYS 06/01 completed end of course Not Available Not Available Not Available metoprolo l tartrate 50 mg tablet TAKE 1 TABLET BY MOUTH TWICE A DAY active Not Available Not Available No t Available nitroglyc sarah 0.4 mg sublingua l tablet PLACE 1 TABLET UNDER THE TONGUE EVERY 5 MINUTES NEEDED FOR CHEST PAIN. active Not Available Not Available No t Available mupirocin 2 % topical ointment 07/10 completed Not Available Not Available Not Available diazepam 10 mg tablet active Not Available Not Available Not Available ketoconaz ole 2 % topical cream APPLY TO THE AREA TWICE A DAY FOR AT LEAST 14 DAYS. 07/05 completed Not Available Not Available Not Available sertralin e 50 mg tablet active Not Available Not Available Not Available naproxen 500 mg tablet active Not Available Not Available Not Available diazepam 5 mg tablet PLEASE SEE ATTACHED FOR DETAILED DIRECTIO NS 07/05 completed Not Available Not Available Not Available metoclopr amide 10 mg tablet active Not Available Not Available No t Available rosuvasta tin 20 mg tablet TAKE 1 TABLET BY MOUTH EVERY DAY 07/05 completed Not Available Not Available Not Available rosuvasta tin 40 mg tablet TAKE 1 TABLET BY MOUTH EVERY DAY active Not Available Not Available No t Available metoprolo l tartrate 25 mg tablet TAKE 1 TABLET BY MOUTH TWICE A DAY 07/05 completed not using this at this time changed the dose per the pt Not Available Not Available Not Available Aspir-81 11/17 completed end of course Not Available Not Available Not Available ranolazin e ER 500 mg tablet,ex tended release,1 2 hr TAKE 1 TABLET BY MOUTH TWICE A DAY active Not Available Not Available No t Available Eliquis 5 mg tablet TAKE 1 TABLET BY MOUTH TWICE A DAY active Not Available Not Available No t Available Vitals Date Recorded Body height Provider Name an d Address Organization Details Last Updated DateTime 11/16/2022 172.72 cm Areli Campoverde [facility] [employer] [facility] [employer] [facility] 11/16/2022 10:13:18 Date Recorded Body height Body mass index (BMI) Body weight Respiratory rate Pain severity - 0-10 verbal numeric rating [Score] - Reported Oxygen saturation Oxygen saturation in Arterial blood by Pulse oximetry Heart rate Systolic blood pressure Diastolic blood pressure Provider Name and Address Organization Details Last Updated DateTime 3 172.72 cm 30.9 kg/m2 28561.2 5 g 16 /min 0 98 % 98 % 58 /min 124 mm[Hg] 78 mm[Hg] Areli Campoverde [facility] 3 11:47:29 Date Recorded Body height Body mass index (BMI) Body weight Heart rate Respiratory rate Oxygen saturation Oxygen saturation in Arterial blood by Pulse oximetry Pain severity - 0-10 verbal numeric rating [Score] - Reported Systolic blood pressure Diastolic blood pressure Provider Name and Address Organization Details Last Updated DateTime 3 172.72 cm 30.3 kg/m2 76565.8 8 g 53 /min 16 /min 99 % 99 % 0 110 mm[Hg] 60 mm[Hg] Areli Campoverde [facility] 3 11:45:27 Date Recorded Body height Body mass index (BMI) Body weight Oxygen saturation Oxygen saturation in Arterial blood by Pulse oximetry Heart rate Respiratory rate Pain severity - 0-10 verbal numeric rating [Score] - Reported Systolic blood pressure Diastolic blood pressure Provider Name and Address Organization Details Last Updated DateTime 4 172.72 cm 30.1 kg/m2 14195.2 9 g 97 % 97 % 63 /min 16 /min 0 112 mm[Hg] 60 mm[Hg] Areli Webermabel [facility] 4 11:18:24 Date Recorded Body height Body mass index (BMI) Body weight Heart rate Oxygen saturation Oxygen saturation in Arterial blood by Pulse oximetry Systolic blood pressure Diastolic blood pressure Provider Name and Address Organization Details Last Updated DateTime 5 172.72 cm 29.3 kg/m2 18676.1 7 g 59 /min 91 % 91 % 122 mm[Hg] 76 mm[Hg] DANIEL ARCHER [facility] [employer] [facility] 5 10:59:56 Social History Question Answer Notes LastModified by Organizat ion Details LastModified Time Tobacco Smoking Status Former Smoker quit in 2005 Hannah floyd, [facility] 09/06/2010 16:38:38 What Is Your Level Of Alcohol Consumption? Occasional 1-2 Drinks Per Wk. Information not available 09/06/2010 Animal Exposure? No [email or web address] Information not available 05/19/2011 What Is Your Level Of Caffeine Consumption? Moderate DBA_PATCH_ 117 Information not available 05/19/2011 How Much Tobacco Do You Chew? None [email or web address] Information not available 11/28/2017 Are You Currently Employed? Yes Information not available 09/24/2014 What Type Of Diet Are You Following? REGULAR DBA_PATCH_ 117 Information not available 05/19/2011 Which Illicit Or Recreational Drugs Have You Used? 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 Multi Level Home DBA_PATCH_ [email or web address] Information not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
== END 2024-09-17 15:17 | disposition home or self-care (01) ==
LOC: HO.HOS 14:50
PROVIDERS: Visit Provider Orthopaedic Surgery
DX: M17.12 Unilateral primary osteoarthritis, left knee (principal)
CPT/HCPCS: 20610; 99213

== ENCOUNTER → 2024-09-17 14:50 | Outpatient (BNVA) | payer MEDICARE, SELFPAY | PROVIDERS: Visit Provider Orthopaedic Surgery | DX: M17.12 Unilateral primary osteoarthritis, left knee (principal) | CPT/HCPCS: 20610; 99212; J2003; J7318 ==